=== PATIENT | male | born 1945 | race Caucasian/White ===

== ENCOUNTER → 2016-06-12 | Outpatient (CLI) | payer MEDICARE ==
--- NOTE | 2016-06-12 15:06 | US ---
EXAMINATION TYPE: US thyroid st tissue head/neck DATE OF EXAM: 06/12/2016 2:26 PM COMPARISON: Carotid ultrasound in PACS May 14, 2016. CT chest April 04, 2016. MRI cervical spi ne October 11, 2009 CLINICAL HISTORY: Nodule visualized on Carotid US GLAND SIZE: Right Lobe: 5.2 x 2.0 x 2.1 cm Overall Parenchyma: heterogenous Left Lobe: 4.8 x 1.6 x 1.3 cm Overall Parenchyma: heterogeneous Isthmus Thickness: 0.2 cm NODULES RIGHT: # of nodules measured on right: 2 1. 1.4 X 1.1 x 1.3 cm hypoechoic mixed nodule at the lower pole with well-defined margins; This nod ule is wider than tall and shows intranodular vascularity. Prior size: No prior 2. 1.4 X 0.8 x 1.0 cm Cystic nodule at the upper pole with well-defined margins; This nodule is wide r than tall and shows no intranodular vascularity. Prior size: No prior -Other sub-centimeter cystic nodules visualized LEFT: # of nodules measured on left: -Multiple subcentimeter cystic nodules- ISTHMUS: # of nodules measured in the isthmus: 0 TECHNOLOGIST IMPRESSION: Bilateral neck scanned, no abnormal lymphadenopathy noted. IMPRESSION: Thyroid gland is overall within normal limits in size with multiple nodules identified. The dominant 1.4 cm mixed nodule lower pole level right thyroid lobe has a regular thickened solid component, cons ider ultrasound-guided fine-needle aspiration of this nodule. SONOGRAPHIC PATTERNS, ESTIMATED MALIGNANCY RISK AND FNA GUIDANCE FOR THYROID NODULES Sonographic Pattern: High Suspicion Ultrasound Features: Solid Hypoechoic Nodule Or Solid Hypoechoic Component Of A Partially Cystic Nodule With One Or More O f The Following Features: Irregular Margins (Infiltrative, Microlobulated), Microcalcifications, Tall er Than Wide Shape, Rim Calcifications With Small Extrusive Soft Tissue Component, Estimated Risk Of Malignancy, %: >70-90 FNA Size Cutoff (Largest Dimension): Recommend FNA At > 1cm
== END | disposition home or self-care (01) ==
LOC: RADUSWWP 14:08
PROVIDERS: ATTEND Family Medicine
DX: E04.2 Nontoxic multinodular goiter (principal)
CPT/HCPCS: 76536

== ENCOUNTER → 2016-06-21 | Outpatient (CLI) | payer MEDICARE ==
--- NOTE | 2016-06-22 12:04 | ECHOF ---
Referral Reason:R91.1 solitary pulmonary nodule I65.22 lt carotid artery jenna MEASUREMENTS -------- HEIGHT: 182.9 cm WEIGHT: 104.3 kg BP: RVIDd: 2.9 cm (< 3.3) IVSd: 1.3 cm (0.6 - 1.1) LVIDd: 4.4 cm (3.9 - 5.3) LVPWd: 1.4 cm (0.6 - 1.1) IVSs: 1.4 cm LVIDs: 3.4 cm LVPWs: 1.6 cm LA Diam: 3.0 cm (2.7 - 3.8) LAESV Index (A-L): 17.51 ml/m Ao Diam: 2.8 cm (2.0 - 3.7) AV Cusp: 2.1 cm (1.5 - 2.6) LA Diam: 3.4 cm (2.7 - 3.8) MV EXCURSION: 16.594 mm (> 18.000) MV EF SLOPE: 71 mm/s (70 - 150) EPSS: 0.5 cm MV E Flynn: 0.66 m/s MV DecT: 256 ms MV A Flynn: 0.92 m/s MV E/A Ratio: 0.72 RAP: 5.00 mmHg RVSP: 14.41 mmHg FINDINGS -------- Sinus rhythm. This was a technically adequate study. There is mild concentric left ventricular hypertrophy. Overall left ventricular systolic function is low-normal with, an EF between 50 - 55 %. The right ventricle is normal in size. The right atrial size is normal. There is mild aortic valve sclerosis. There is no evidence of aortic regurgitation. Mild mitral annular calcification present. Mild mitral regurgitation is present. Mild tricuspid regurgitation present. There is no evidence of pulmonary hypertension. The right ventricular systolic pressure, as measured by Doppler, is 14.41mmHg. Trace/mild (physiologic) pulmonic regurgitation. The aortic root size is normal. Echo free space may represent effusion or a pericardial fat pad. CONCLUSIONS -------- 1. There is mild concentric left ventricular hypertrophy. 2. Overall left ventricular systolic function is low-normal with, an EF between 50 - 55 %. 3. There is mild aortic valve sclerosis. 4. Mild mitral annular calcification present. 5. Mild mitral regurgitation is present. 6. There is no evidence of pulmonary hypertension. 7. The right ventricular systolic pressure, as measured by Doppler, is 14.41mmHg. 8. Trace/mild (physiologic) pulmonic regurgitation. 9. Echo free space may represent effusion or a pericardial fat pad. GPS NAVIGATION INSTALLER: Evelyne Agee RDCS
== END | disposition home or self-care (01) ==
LOC: RADECHMAIN 13:02
PROVIDERS: ATTEND Family Medicine
DX: I51.7 Cardiomegaly (principal); I08.0 Rheumatic disorders of both mitral and aortic valves; I37.1 Nonrheumatic pulmonary valve insufficiency
CPT/HCPCS: 93306

== ENCOUNTER → 2016-07-13 | Outpatient (CLI) | payer MEDICARE ==
--- NOTE | 2016-07-13 07:57 | CT ---
EXAMINATION TYPE: CT chest wo con DATE OF EXAM: 07/13/2016 7:43 AM COMPARISON: Previous study dated 04/04/2016 HISTORY: 3 month f/u CT DLP: 499.8 mGycm Automated exposure control for dose reduction was used. FINDINGS: Lesion in the right lung apex has increased in size from 5.7 mm to 7.2 mm. There are scattered granul omas throughout the lungs. A lesion seen in the anterior aspect of the right middle lobe is less appa rent on today's examination and has decreased in size from 8.2 mm to 7.7 mm. A groundglass nodule at the junction of the fingers on the right has increased in size from 6.6 mm the 8.5 mm. A groundglass nodule seen in the superior segment of the right lower lobe has increased in size from 7.6 mm to 11.7 mm. No new nodules are identified. There is some shotty mediastinal adenopathy. No pathologically enlarged lymph nodes are seen. There a re calcified lymph nodes in the right hilum. There is no pleural or pericardial fluid. There is mild coronary artery calcification. There is evidence of old granulomatous disease in the liver and spleen. Visualized portions of the up per abdomen are otherwise normal. There is hypertrophic spondylosis within the spine. There is been a previous ACDF of the lower cervical spine. IMPRESSION: 1. ENLARGING PULMONARY NODULES. 2. 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 3. HYPERTROPHIC SPONDYLOSIS WITHIN THE SPINE. 4. POSTSURGICAL CHANGE.
== END | disposition home or self-care (01) ==
LOC: RADCTMAIN 07:23
PROVIDERS: ATTEND Family Medicine
DX: R91.8 Other nonspecific abnormal finding of lung field (principal); J44.9 Chronic obstructive pulmonary disease, unspecified; Z98.890 Other specified postprocedural states
CPT/HCPCS: 71250

== ENCOUNTER 2016-07-30 12:07 | Day surgery (SDC) | payer MEDICARE ==
[2016-07-30 13:17] VITALS: BP 151/87; PULSE 94; RESP 20; TEMP 97.6
--- NOTE | 2016-08-13 07:45 | US ---
EXAMINATION TYPE: US FNA thyroid DATE OF EXAM: 07/30/2016 1:56 PM COMPARISON: Prior ultrasound 12 June 2016 HISTORY: Thyroid nodule, E04.1 Maximal barrier technique was utilized. Ultrasound using sterile technique. The skin overlying the no dule was localized with ultrasound and the overlying skin prepped and draped. Lidocaine used for loca l anesthesia. 5 passes with a 25-gauge needle were made into the nodule under ultrasound guidance. As pirate specimen submitted to cytology. Following the procedure hemostasis achieved. No immediate comp lication IMPRESSION: Status post ultrasound-guided fine-needle aspiration of thyroid nodule, pathology pending .
== END 2016-07-30 14:15 | disposition home or self-care (01) ==
LOC: RADPROMAIN 12:07
PROVIDERS: ATTEND Family Medicine
DX: E04.1 Nontoxic single thyroid nodule (principal)
CPT/HCPCS: 10022; 36415; 76942; 88173; 88305

== ENCOUNTER → 2017-02-08 | Outpatient (CLI) | payer MEDICARE ==
--- NOTE | 2017-02-08 11:33 | CT ---
EXAMINATION TYPE: CT chest wo con DATE OF EXAM: 02/08/2017 COMPARISON: July 13, 2016 HISTORY: Multiple Lung Nodules CT DLP: 481.[address] of the chest was performed with lung and mediastinal window settings submitted. The la ck of contrast limits evaluation of the vascular, mediastinal and parenchymal structures including th e upper abdomen. LUNGS: Right apical groundglass nodular density is essentially unchanged at 7 mm. Additional nodular groundglass density superior segment right lower lobe measures 9.5 mm versus 9.6 mm previously. Stabl e calcified nodules within the right middle lobe. Pleural-based nodule right middle lobe anteriorly i s also unchanged at 7 mm. Right lower lobe nodule is unchanged at 8.5 mm. MEDIASTINUM/JOAO: Thoracic aorta is of normal caliber with limited evaluation given lack of contrast . The heart is not enlarged. No evidence for mediastinal mass. No lymph nodes greater than 1cm. C alcified hilar lymph nodes. UPPER ABDOMEN: Splenic granulomas identified. Hepatic granuloma also seen. OTHER: No significant other abnormality. IMPRESSION: 1. Findings likely on the basis of calcified and noncalcified granulomatous disease however stabilit y over a two-year timeframe should be documented radiographically.
== END | disposition home or self-care (01) ==
LOC: RADCTMAIN 10:53
PROVIDERS: ATTEND Internal Medicine Critical Care Medicine
DX: R91.8 Other nonspecific abnormal finding of lung field (principal); Z88.8 Allergy status to other drugs, medicaments and biological substances
CPT/HCPCS: 71250

== ENCOUNTER → 2018-04-09 | Outpatient (CLI) | payer MEDICARE ==
--- NOTE | 2018-04-09 08:35 | CTL ---
EXAMINATION TYPE: CT Low Dose Lung DATE OF EXAM ORDERED: 04/09/2018 HISTORY: Long-term tobacco use. Lung cancer screening CT DLP: 126.[address] CTDI: 3.6 mGy Automated exposure control for dose reduction was used. SCREENING VISIT: Second study COMPARISON: Low-dose lung screening CT April 04, 2016. Chest CTs February 08, 2017 and July 13, 2016. TECHNIQUE: Low dose computed tomography scan was performed through the chest at 1 mm thick sections a nd reconstructed images in the coronal plane at [address] DIAGNOSTIC QUALITY: Satisfactory FINDINGS: LUNG NODULES: Present, detailed below: 9 x 6 mm right apical scarlike opacity or ground glass nodule without solid component axial image 27 is slightly more prominent from prior's. Superior right lower lobe 9 x 8 mm groundglass nodule axial image 126 is slightly more prominent post erior to tiny thin-walled cyst or bleb. A 7 x 4 mm right midlung nodule at the fissure junction axial image 160 is stable. Somewhat elongated 6 x 4 mm nodule medial right middle lobe adjacent to focal pleural thickening axia l image 174 stable. Stable 7 x 5 mm subpleural nodule anterior right middle lobe axial image 194. Scattered subcentimeter calcified nodules are granulomas throughout the right lung are redemonstrated LUNGS: COPD: Severity: Mild Fibrosis: Severity: Mild peripheral reticulations remain present. Mild left basilar linear scarring i s again seen. Lymph nodes: Stable slightly prominent but calcified right hilar lymph nodes. No new greater than 1 c m adenopathy. Other findings: New focal area of groundglass opacity in the lingula near axial image 186. BILATERAL PLEURAL SPACE: Effusion: None Calcification: None Thickening: None Pneumothorax: None HEART: Heart Size: Normal Coronary calcification: Moderate Pericardial effusion: None OTHER FINDINGS: Upper abdomen: Visualized liver is hypodense relative to spleen consistent with diffuse fatty infiltr ation. Bony thorax: Anterior fusion plate lower cervical spine is redemonstrated on localizer image. Moderat e to severe multilevel spurring in thoracic spine is redemonstrated. Supraclavicular region: None Other: None IMPRESSION: Scattered nodules, scarlike opacities, and groundglass nodules redemonstrated. No new nod ules are evident. Majority nodules stable for one year. Right-sided groundglass nodules perhaps sligh tly more prominent from initial CT but remain under 20 mm in size. FOLLOW UP CT CHEST RECOMMENDATION: Annual low-dose lung screening CT CT LUNG RAD: Lung-Rad 2 Benign Appearance or Behavior
== END | disposition home or self-care (01) ==
LOC: RADCTMAIN 07:07
PROVIDERS: ATTEND Internal Medicine Critical Care Medicine
DX: Z12.2 Encounter for screening for malignant neoplasm of respiratory organs (principal); R91.8 Other nonspecific abnormal finding of lung field; Z87.891 Personal history of nicotine dependence

== ENCOUNTER → 2019-04-06 | Outpatient (CLI) | payer MEDICARE ==
--- NOTE | 2019-04-07 04:36 | CTL ---
EXAMINATION TYPE: CT Low Dose Lung DATE OF EXAM ORDERED: 04/06/2019 HISTORY: 73-year-old male Tobacco and nicotine dependency.. Lung cancer screening CT DLP: [address] CTDI: 2.6 mGy Automated exposure control for dose reduction was used. SCREENING VISIT: Annual follow-up COMPARISON: 04/09/2018 TECHNIQUE: Low dose computed tomography scan was performed through the chest at 1 mm thick sections a nd reconstructed images in the coronal and sagittal plane. Additional coronal MIP reconstruction perf ormed. CT DIAGNOSTIC QUALITY: Satisfactory FINDINGS: Heart normal size without pericardial effusion. Scattered coronary vessel calcifications are present. Aorta normal caliber with mild atherosclerotic arch calcifications and dimension arch vessel branchin g anatomy. Scattered nonenlarged mediastinal lymph nodes. No thoracic lymphadenopathy by CT size criteria. Calci fied right hilar and lower right paraesophageal lymph nodes compatible with prior granulomatous disea se. Lungs show scattered calcified granulomas. Mild diffuse bronchial wall thickening. Stable 7 mm right apical pulmonary nodule axial image 41 but with increasing adjacent groundglass lincoln suring 1 cm, axial image 44. Groundglass focus superior segment right lower lobe currently measures 1.3 cm (9 mm, previously) with a new 5 mm solid component, axial image 138 and 139. Stable 7 mm nodule right mid lung along the fissure likely intrafissural lymph node, stable. 7 mm subpleural pulmonary nodule anterior right middle lobe axial image 203, unchanged. Some chronic volume loss medial basilar right middle lobe. Strandy atelectasis inferior lingula Visualized upper abdomen shows no gross abnormality by low-dose CT technique. Bones: Bridging anterior endplate spondylosis mid and lower thoracic spine suggesting dish. IMPRESSION: 1. Lung RADS - 4A (probably suspicious, 5-15% chance of malignancy). 1.3 cm groundglass nodule superi or segment right lower lobe increased from 9 mm with a new 5 mm solid component. 3 month follow-up CT recommended. 2. The relatively stable 7 mm right apical pulmonary nodule should also be closely monitored given ne w 1 cm adjacent groundglass. 3. Bronchial wall thickening suggests bronchitis or asthma. Prior granulomatous disease. RECOMMENDATION: 1. Three-month follow-up low-dose CT chest. 2. Smoking cessation. FOLLOW UP CT CHEST RECOMMENDATION: [address] LUNG RAD: Lung-Rad 4A Probably Suspicious
== END | disposition home or self-care (01) ==
LOC: RADCTMAIN 15:46
PROVIDERS: ATTEND Internal Medicine Critical Care Medicine
DX: Z12.2 Encounter for screening for malignant neoplasm of respiratory organs (principal); R91.8 Other nonspecific abnormal finding of lung field; D71 Functional disorders of polymorphonuclear neutrophils; Z87.891 Personal history of nicotine dependence

== ENCOUNTER → 2019-10-21 | Outpatient (CLI) | payer MEDICARE | END | disposition home or self-care (01) | LOC: LABPAT 08:43 | PROVIDERS: ATTEND Urology | DX: Z01.818 Encounter for other preprocedural examination (principal); C61 Malignant neoplasm of prostate | CPT/HCPCS: 87635 ==

== ENCOUNTER 2019-10-23 06:21 | Day surgery (SDC) | payer MEDICARE ==
--- NOTE | 2019-10-12 09:22 | P.HPIHPCON ---
History of Present Illness H&P Date: 10/23/19 Chief Complaint: prostate cancer Mr Gross is 73 yo male with hx of flex 7 prostae cancer. We discussed with him the options including surgery and radiation therapy. We discussed the risk and benefits with him of each approach. I discussed with surgery the risk of urinary incontinence or erectile dysfunction, I also discussed with him risk of injury to nearby organs including bowels and rectum and blood vessels. I also discussed the risk from anesthesia with him. Which included blood clots, heart attack, stroker and even . He understood all the risk and agreed to proceed with a robotic-assisted radical prostatectomy and plevic lymph node dissection Consent for Procedure: I have explained the operation/procedure to the patient, including the risks, benefits, side effects, alternative therapies (including not receiving the pr oposed treatment or service), the likelihood of the patient achieving his/her goals, and potential recuperation problems for the procedure/sedation/analgesia, as well as any blood products, if indicated. I also explained to the patient the risks, benefits and side effects of the alternatives, as well as the risks related to not receiving the proposed procedure, care, treatment, or services. Past Medical History Past Medical History: Cancer, COPD, Hyperlipidemia, Hypertension, Skin Disorder, Thyroid Disorder Additional Past Medical History / Comment(s): skin cancer - head, "nodules on my lung..need to get that scheduled, just found out today" History of Any Multi-Drug Resistant Organisms: None Reported Additional Past Surgical History / Comment(s): Neck surgery - plate, rotator cuff bilateral, skin cancer removed Past Anesthesia/Blood Transfusion Reactions: No Reported Reaction Past Psychological History: Anxiety Smoking Status: Former smoker Past Alcohol Use History: Occasional Additional Past Alcohol Use History / Comment(s): quit May 0811/2015 Past Drug Use History: None Reported - Past Family History Mother Brother(s) Family Medical History: Cancer Additional Family Medical History / Comment(s): Lung cancer Medications and Allergies Home Medications Medication Instructions Recorded Confirmed Type Cholecalciferol [Vitamin D3] 2,000 unit PO DAILY 07/20/16 07/30/16 History Fenofibrate [Lofibra] 160 mg PO DAILY 07/20/16 07/30/16 History Fish Oil/Dha/Epa [Fish Oil 1,200 1 each PO Q6HR 07/20/16 07/30/16 History mg Fish Oil] Metoprolol Succinate [Toprol XL] 50 mg PO DAILY 07/20/16 07/30/16 History Multivitamin [Men's Multi-Vitamin] 1 each PO DAILY 07/20/16 07/30/16 History Sertraline [Zoloft] 50 mg PO DAILY 07/20/16 07/30/16 History Valsartan/Hydrochlorothiazide 1 tab PO DAILY 07/20/16 07/30/16 History [Diovan Hct 160-25 mg Tablet] Varenicline [Chantix] 1 mg PO BID 07/20/16 07/30/16 History Allergies Allergy/AdvReac Type Severity Reaction Status Date / Time No Known Allergies Allergy Verified 07/30/16 12:48
[2019-10-21 12:27] VITALS: BMI 33.2
[~2019-10-23 06:21] MED LIST: DEXAMETHASONE SOD PHOSPHATE 10 MG/ML 1 ML VIAL IV ONE; LIDOCAINE 1% (10MG/ML) FOR IV START INTRADERMA PRN; MIDAZOLAM 2 MG/2 ML VIAL IV PRN; ONDANSETRON 4 MG/2 ML VIAL IVP ONE
[2019-10-23 07:01] LABS: Glucose,Whole Blood 170 mg/dL (75-99)
[2019-10-23] MEDS: LACTATED RINGERS 1,000 ML IV SCH ×2 (07:03→14:53)
[2019-10-23 07:06] LABS: Basophils % (A) 0 %; Eosinophils # (A) 0.2 k/uL (0-0.7); Eosinophils % (A) 2 %; HCT 40.5 % (39.0-53.0); HGB 14.1 gm/dL (13.0-17.5); Lymphocytes # (A) 1.9 k/uL (1.0-4.8); Lymphocytes % (A) 26 %; MCH 32.5 pg (25.0-35.0); Mean Platelet Volume 7.2; Monocytes # (A) 0.3 k/uL (0-1.0); Monocytes % (A) 4 %; Neutrophils # (A) 4.8 k/uL (1.3-7.7); Neutrophils % (A) 66 %; Platelet Count 239 k/uL (150-450); RBC 4.35 m/uL (4.30-5.90); WBC 7.3 k/uL (3.8-10.6)
[2019-10-23 07:09] LABS: Potassium 4.6 mmol/L (3.5-5.1)
[2019-10-23 07:19] LABS: Prothrombin Time 10.3 sec (9.0-12.0)
[2019-10-23] MEDS ORDERED: MIDAZOLAM 2 MG/2 ML VIAL ONE (07:25)
[2019-10-23] MEDS ORDERED: SUCCINYLCHOLINE CHLORIDE 100 MG/5 ML SYR IV ONE (07:25)
[2019-10-23] MEDS ORDERED: PROPOFOL 10 MG/ML 20 ML VIAL IV ONE (07:25)
[2019-10-23] MEDS ORDERED: GLYCOPYRROLATE 0.2 MG/ML 2 ML VIAL ONE (07:25)
[2019-10-23] MEDS ORDERED: fentaNYL (PF) 50 MCG/ML 2 ML AMP ONE (07:25)
[2019-10-23] MEDS ORDERED: HYDROmorphone (PF) 1 MG/ML ONE (07:25)
[2019-10-23] MEDS ORDERED: ROCURONIUM BROMIDE 10 MG/ML 5 ML VIAL IV ONE (07:25)
[2019-10-23] MEDS ORDERED: NEOSTIGMINE 1 MG/ML 10 ML VIAL ONE (07:25)
[2019-10-23] MEDS ORDERED: LIDOCAINE 1% INJ 10MG/ML (20 ML MDV) ONE (07:25)
[2019-10-23] MEDS ORDERED: HEPARIN SODIUM,PORCINE 5,000 UNIT/ML 1 ML VIAL SQ ONE (07:33)
[2019-10-23] MEDS ORDERED: BUPIVACAINE (PF) 0.25% 30 ML VIAL SQ ONE (08:17)
[2019-10-23] MEDS ORDERED: LACTATED RINGERS 1,000 ML IV ONE ×2 (11:05→12:20)
[2019-10-23] MEDS ORDERED: HYDROmorphone 1 MG/ML 1 ML SYRINGE IVP PRN (13:02)
[2019-10-23] MEDS ORDERED: traMADol 50 MG TAB PO PRN (13:06)
[2019-10-23 13:07] LABS: Glucose,Whole Blood 232 mg/dL (75-99)
--- NOTE | 2019-10-23 13:14 | P.OP ---
Date of Procedure: 10/23/19 Preoperative Diagnosis: Prostate cancer Postoperative Diagnosis: Same Procedure(s) Performed: Robotic prostatectomy, pelvic lymph node dissection Implants: None Anesthesia: DEJA Surgeon: Jeyson Choi Tele Grout Sewer Line Repairer #1: Derian Amaya Estimated Blood Loss (ml): 300 Pathology: other (Prostate, bilateral seminal vesicle, bilateral pelvic lymph node) Condition: stable Disposition: PACU Operative Findings: Seminal vesicle, the left base of the prostate was stuck posteriorly Description of Procedure: After preoperative antibiotics were started, the patient was taken to the operating room. Anesthesia was induced and the patient was placed in a low lithitomy position, with adequate padding of the pressure points, shoulders, back, legs and arms. He was then prepped and draped in the standard fashion. A critical pause was performed using two patient identifiers. A 16F barnes catheter was placed to gravity drainage. A pneumo-peritoneum was created with placement of a Veress needle to 20 mm Hg without complication, and a 8 Fr trocar was placed above the umbillicus. Under direct vision a 8mm robotic ports was placed lateral to each rectus slightly below the camera port. The left iliac fossa 8mm port was placed. The right paraprofessional education assistant right iliac fossa 12mm port and right paramedian 5mm portwere placed. After the patient was placed in the trendelenberg position, the robot was then docked to the 8mm robotic ports and then each robotic arm and tower was checked in relation to the patient's legs and hands to avoid inadvertent compression. The peritoneal cavity was inspected. An inverted U-shaped incision began laterally to the left medial umbilical ligament and extended high across the midline to the right umbilical ligament. The limbs of the "U" extended to the level of the vasa on both sides. We next developed the preperitoneal space and the space of Retzius. Cautery was used to dissected the bladder away from the prostate. After the anterior bladder neck was incised and the bladder entered the the posterior bladder neck was exposed and the ureteral orifces identified. The posterior bladder neck was then incised and dissected away from the prostate. The vas and the seminal vesicles were now exposed and dissected to their insertions into the prostate and were not spared. Of note the the left seminal vesicle, and the left base of the prostate was stuck posteriorly . The rectum was cleared closely adhered to the left base. Given this finding, the posterior plane along the right side of the prostate was developed after the right side of the prostate was freed from posteriorly , using blunt dissection the left prostate base was freed from the rectum. After the base was released, the apical midportion of the prostate was easily for freed posteriorly. Each lateral pedicle was controlled with clips and cautery for hemostasis. Nerve preservation was performed standard nerve sparing was performed on the right and standard was performed on the left. The puboprostatic ligament was incised where it inserted into the apex of the prostate and a plane between urethra and dorsal venous complex developed to expose the anterior urethral surface. The anterior wall of the urethra was transected with the cut setting a few millimeters distal to the apex of the prostate. The dorsal vein was ligated using 3-0 V lock bilateral obturator and external iliac lymph node packets were carefully dissected after careful visualization of the hypogastric artery and obturator nerve. There was careful attention paid to hemostasis with judicious use of cautery. The urethrovesical anastomosis was performed . the posterior denovillers was reapproximated using 3-0 V lock. A 6 and 6 inch 3-0 V-Lock suture was used to anastomose the urethra and bladder, starting at the 6:00 posterior position. Mucosa was secured in every stitch, to ensure a mucosa to mucosa anastomosis. The stitch was regularly cinched and the anastomosis tightened. Care was taken to not violate the ureteral orifices. The Barnes catheter was advanced, the bladder filled, and the anastomosis was tested, as described above. Anastomsis was watertight at 150 mL The periumbilical fascia was closed with 1-0-PDS suture in running fashion. All ports were closed with a subcuticular 4-0 monocryl and Dermabond. Sponge, instrument, and needle counts were correct at the end of the case x2. All sp ecimens including prostate and lymph nodes were sent to pathology for diagnosis and will be available in a week. The patient tolerated the surgery well and without complication. He awoke without difficulty and was taken to the recovery room in stable condition
[2019-10-23] MEDS ORDERED: INSULIN ASPART (NovoLOG) 100 UNIT/ML VIAL SQ ONE (13:22)
[2019-10-23] MEDS: HYDROmorphone 0.5 MG/0.5 ML SYRINGE IVP PRN ×2 (13:34→13:40)
[2019-10-23 16:41] LABS: Glucose,Whole Blood 187 mg/dL (75-99)
[2019-10-23] MEDS: DEXTROSE 5%-0.45% NACL 1,000 ML IV SCH ×2 (17:34→22:24)
[2019-10-23] MEDS: HEPARIN SODIUM,PORCINE 5,000 UNIT/ML 1 ML VIAL SQ SCH (17:37)
[2019-10-23] MEDS: ACETAMINOPHEN TAB 325 MG TAB PO SCH ×2 (17:37→21:18)
[2019-10-23 20:16] LABS: Glucose,Whole Blood 183 mg/dL (75-99)
[2019-10-23 20:33] LABS: HCT 36.9 % (39.0-53.0); HGB 11.9 gm/dL (13.0-17.5); MCH 30.6 pg (25.0-35.0); MCHC 32.2 g/dL (31.0-37.0); Mean Platelet Volume 7.2; Platelet Count 294 k/uL (150-450); RBC 3.88 m/uL (4.30-5.90); RDW 15.1 % (11.5-15.5); WBC 16.3 k/uL (3.8-10.6)
[2019-10-23 20:39] LABS: Calcium 9.1 mg/dL (8.4-10.2); Potassium 5.2 mmol/L (3.5-5.1)
[2019-10-23] MEDS: COLCHICINE 0.6 MG EACH PO SCH (21:19)
[2019-10-24] MEDS: HEPARIN SODIUM,PORCINE 5,000 UNIT/ML 1 ML VIAL SQ SCH ×2 (00:40→10:42)
[2019-10-24] MEDS: ACETAMINOPHEN TAB 325 MG TAB PO SCH ×5 (00:40→14:14)
[2019-10-24] MEDS: DEXTROSE 5%-0.45% NACL 1,000 ML IV SCH (05:44)
[2019-10-24 07:05] LABS: Glucose,Whole Blood 142 mg/dL (75-99)
[2019-10-24] MEDS ORDERED: ALLOPURINOL 300 MG TAB PO SCH (09:00)
[2019-10-24] MEDS ORDERED: SERTRALINE 50 MG TAB PO SCH (09:00)
[2019-10-24] MEDS ORDERED: METOPROLOL SUCCINATE (ER) 50 MG TAB.ER.24H PO SCH (09:00)
[2019-10-24] MEDS: COLCHICINE 0.6 MG EACH PO SCH (10:43)
[2019-10-24 11:19] LABS: Glucose,Whole Blood 157 mg/dL (75-99)
[2019-10-24 12:13] VITALS: BP 125/66; PULSE 71; RESP 17; TEMP 98.1
--- NOTE | 2019-10-24 14:18 | P.DS ---
Providers Attending physician: Jeyson Choi MD Primary care physician: [facility] Course: Mr Perez is 73 yo male with hx of prostate cancer, he underwent robotic prostatectomy on 10/22. He had no complication during surgery, please see op note dated 10/22 for full surgery details. He was admitted to the hospital post operatively. He was discharged home on POD #1 with barnes catheter , at time of discharge he was tolerating diet, ambulating and pain well controlled. Plan - Discharge Summary Discharge Rx Participant: No New Discharge Prescriptions: New Cephalexin [Keflex] 500 mg PO Q12HR 3 Days #6 cap Methocarbamol [Robaxin] 750 mg PO QID PRN #20 tab PRN Reason: Pain No Action Sertraline [Zoloft] 50 mg PO DAILY Metoprolol Succinate [Toprol XL] 50 mg PO DAILY Fish Oil/Dha/Epa [Fish Oil 1,200 mg Fish Oil] 2 each PO BID Multivitamin [Men's Multi-Vitamin] 1 each PO DAILY Cholecalciferol [Vitamin D3] 2,000 unit PO BID Allopurinol [Zyloprim] 300 mg PO DAILY Olmesartan Medoxomil 40 mg PO DAILY Colchicine 0.6 mg PO BID Discharge Medication List Cholecalciferol [Vitamin D3] 2,000 unit PO BID 07/20/16 [History] Fish Oil/Dha/Epa [Fish Oil 1,200 mg Fish Oil] 2 each PO BID 07/20/16 [History] Metoprolol Succinate [Toprol XL] 50 mg PO DAILY 07/20/16 [History] Multivitamin [Men's Multi-Vitamin] 1 each PO DAILY 07/20/16 [History] Sertraline [Zoloft] 50 mg PO DAILY 07/20/16 [History] Allopurinol [Zyloprim] 300 mg PO DAILY 10/21/19 [History] Colchicine 0.6 mg PO BID 10/21/19 [History] Olmesartan Medoxomil 40 mg PO DAILY 10/21/19 [History] Cephalexin [Keflex] 500 mg PO Q12HR 3 Days #6 cap 10/24/19 [Rx] Methocarbamol [Robaxin] 750 mg PO QID PRN #20 tab 10/24/19 [Rx] Follow up Appointment(s)/Referral(s): Jeyson Choi MD [STAFF PHYSICIAN] - 10 Days Patient Instructions/Handouts: Cephalexin (By mouth), Methocarbamol (By mouth) Activity/Diet/Wound Care/Special Instructions: You may see some blood in the urine Follow up in 10 days no Heavy lifting or straining Start you keflex one day prior to your appointment diet as tolerated call on Saturday to schedule appointments Discharge Disposition: HOME SELF-CARE
== END 2019-10-24 15:33 | disposition home or self-care (01) ==
LOC: OR 06:21 → 5NMEDONC 12:41 → OR 10-24 15:33
PROVIDERS: ATTEND Urology
DX: C61 Malignant neoplasm of prostate (principal); J44.9 Chronic obstructive pulmonary disease, unspecified; E78.5 Hyperlipidemia, unspecified; I10 Essential (primary) hypertension; R91.8 Other nonspecific abnormal finding of lung field; E07.9 Disorder of thyroid, unspecified; Z85.828 Personal history of other malignant neoplasm of skin; Z98.890 Other specified postprocedural states; F41.9 Anxiety disorder, unspecified; Z87.891 Personal history of nicotine dependence; Z80.1 Family history of malignant neoplasm of trachea, bronchus and lung; Z79.899 Other long term (current) drug therapy
CPT/HCPCS: 86900; 86901; 80048; 85025; 85027; 85610; 86850; 55866; 38571; J1644 ×2; J1100; J0690; J2405; J1170

== ENCOUNTER → 2020-03-14 | Outpatient (CLI) | payer MEDICARE ==
--- NOTE | 2020-03-14 13:47 | CT ---
EXAMINATION TYPE: CT chest wo con DATE OF EXAM: 03/14/2020 COMPARISON: 07/13/2019 HISTORY: Follow up scan per patient CT DLP: 517.4 mGycm. Automated Exposure Control for Dose Reduction was Utilized. TECHNIQUE: CT scan of the thorax is performed without IV contrast. FINDINGS: LUNGS: Stable 7 x 8 mm irregular density right apex unchanged. No pneumothorax. No pleural effusion. No consolidative pneumonia. There are additional multiple calcified pulmonary nodules in the right lin ng compatible with granuloma.. MEDIASTINUM: Lack of IV contrast is noted to limit evaluation for mediastinal and especially hilar ad enopathy. There are no definitive greater than 1 cm hilar or mediastinal lymph nodes. No cardiomega ly or pericardial effusion is seen. Calcified lymph nodes in the hilum seen with coronary artery calc ification. OTHER: Splenic and hepatic granuloma noted. Hypertrophic and degenerative changes of the spine. Incid ental note made of duodenal diverticulum. Postsurgical change overlying the cervical spine. IMPRESSION: 1. Stable 8 mm somewhat irregular right apical pulmonary nodule correlate clinically. PET scan could BE obtained for further evaluation. 2. Correlate for chronic granulomatous disease.
== END | disposition home or self-care (01) ==
LOC: RADCTMAIN 13:08
PROVIDERS: ATTEND Internal Medicine Critical Care Medicine
DX: R91.1 Solitary pulmonary nodule (principal); Z88.6 Allergy status to analgesic agent
CPT/HCPCS: 71250

== ENCOUNTER → 2021-01-03 | Outpatient (CLI) | payer MEDICARE ==
--- NOTE | 2021-01-03 19:34 | MR ---
EXAMINATION TYPE: MR knee RT wo con DATE OF EXAM: 01/03/2021 COMPARISON: Outside radiographs 12/16/2020 HISTORY: 75-year-old male M2 5.561, Right knee pain TECHNIQUE: Multiplanar, multisequence imaging of the right knee is performed without IV contrast. FINDINGS: ACL, PCL, and MCL are intact. Some increased signal within the popliteus tendon could represent a mild sprain or contusion. The fem oral insertion of the LCL proper also shows slight increased signal. The remainder of the LCL complex is otherwise intact. Large oblique tear extending throughout the posterior horn and body of the medial meniscus. Mild supe rficial cartilage irregularity along the major central aspect of the medial compartment. Lateral meniscus is partially discoid. Overall preserved lateral compartment articular cartilage volu me. Mild superficial irregular cartilage loss along the trochlear groove and mild thinning of patellar ar ticular cartilage. Some focal soft tissue edema inferior and lateral to the patella within Hoffa's fat, sagittal image 2 6. Some additional edema within the suprapatellar fat pad medially extending into the adjacent medial quadriceps insertion. Sagittal image 17 and 18. Additional increased signal involving the proximal d eep patellar tendon fibers. Anterior soft tissue swelling. Physiologic joint effusion. Small 3.4 cm Matt cyst. Normal popliteal artery anatomy with mild generalized muscle atrophy. No suspicious bone marrow repla cement. Patchy red marrow is present and can be seen in the setting of anemia, obesity, smoking, lunchroom food service supervisor conrado disease. IMPRESSION: 1. Mild sprain at the femoral insertion of the LCL proper and additional sprain/contusion of the popl iteus tendon. 2. Large oblique tear involving the posterior horn and body of the medial meniscus. Very mild early d egenerative change along the mid central aspect of the medial compartment. 3. Mild patellofemoral compartmental osteoarthrosis. 4. Tendinosis at the medial insertion of the quadriceps tendon and mild proximal patellar tendinosis. 5. Some focal edema within Hoffa's fat inferolateral to the patella can be seen with fat pad impingem ent syndrome. Clinically correlate. 6. Anterior soft tissue swelling and small Matt's cyst.
== END | disposition home or self-care (01) ==
LOC: RADMRIMAIN 11:10
PROVIDERS: ATTEND Orthopaedic Surgery
DX: S80.01XA Contusion of right knee, initial encounter (principal); M17.11 Unilateral primary osteoarthritis, right knee; M23.321 Other meniscus derangements, posterior horn of medial meniscus, right knee; M71.21 Synovial cyst of popliteal space [Baker], right knee

== ENCOUNTER 2021-02-09 10:04 | Day surgery (SDC) | payer MEDICARE ==
--- NOTE | 2021-02-08 19:41 | HP ---
HISTORY AND PHYSICAL DATE OF SURGERY: 02/09/2021 Ricky Gross is a 75-year-old gentleman seen with progressive right knee pain. We discussed options. He elected to proceed with right knee arthroscopy. Consent was obtained. Clearance was provided by Dr. Chan. PAST MEDICAL HISTORY: Hypertension, hzy-kynchkb-nyntntepm diabetes, hyperlipidemia. PAST SURGICAL HISTORY: Bilateral shoulder surgery, prostatectomy. DAILY MEDICATIONS: Metformin, metoprolol, sertraline, colchicine. ALLERGIES: NONE. SOCIAL HISTORY: He denies current tobacco use. PHYSICAL EVALUATION OF THE RIGHT KNEE: Range of motion zero to 130. Mild effusion. Tenderness, medial joint line. Positive medial Fifi's. Ligaments stable. Hip rotation without pain. Distal neurovascular exam intact. RADIOGRAPHS: Right knee radiographs revealed mild to moderate osteoarthritis. Right knee MRI revealed medial meniscal tear. IMPRESSION: 1. Internal derangement of right knee with medial meniscal tear. 2. Hypertension. 3. Hyperlipidemia. 4. Gxa-vwhiabq-zlkapgvai diabetes. PLAN: Right knee arthroscopy with partial meniscectomy and debridement. MMODL / IJN: [id number] /
[~2021-02-09 10:04] MED LIST changes: -DEXAMETHASONE SOD PHOSPHATE 10 MG/ML 1 ML VIAL IV ONE; +DEXAMETHASONE SOD PHOSPHATE 4 MG/ML 1 ML VIAL IV ONE; +HYDROmorphone 0.5 MG/0.5 ML SYRINGE IVP PRN; +LACTATED RINGERS 1,000 ML IV SCH; -LIDOCAINE 1% (10MG/ML) FOR IV START INTRADERMA PRN; -MIDAZOLAM 2 MG/2 ML VIAL IV PRN
[2021-02-09] MEDS ORDERED: LIDOCAINE 1% (10MG/ML) FOR IV START INTRADERMA ONE (10:19)
[2021-02-09 10:38] VITALS: RESP 16; TEMP 96.8
[2021-02-09 10:40] LABS: Glucose,Whole Blood 128 mg/dL (75-99)
[2021-02-09] MEDS ORDERED: fentaNYL (PF) 50 MCG/ML 2 ML AMP ONE (11:29)
[2021-02-09] MEDS ORDERED: LIDOCAINE 1% INJ 10MG/ML (20 ML MDV) ONE (11:29)
[2021-02-09] MEDS ORDERED: MIDAZOLAM 2 MG/2 ML VIAL ONE (11:29)
[2021-02-09] MEDS ORDERED: SUCCINYLCHOLINE CHLORIDE 100 MG/5 ML SYR IV ONE (11:29)
[2021-02-09] MEDS ORDERED: PROPOFOL 10 MG/ML 20 ML VIAL IV ONE (11:29)
[2021-02-09] MEDS ORDERED: BUPIVACAINE (PF) 0.25% 30 ML VIAL SQ ONE (12:07)
--- NOTE | 2021-02-09 12:25 | P.OP ---
Date of Procedure: 02/09/21 Preoperative Diagnosis: Internal derangement right knee Postoperative Diagnosis: 1. Tear medial meniscus right knee 2. Grade 2 chondromalacia medial femoral condyle right knee 3. Reactive synovitis medial, lateral and suprapatellar compartments right knee Procedure(s) Performed: 1. Arthroscopic partial medial meniscectomy right knee 2. Arthroscopic chondroplasty medial femoral condyle right knee 3. Arthroscopic partial synovectomy medial, lateral and suprapatellar compartments right knee Anesthesia: ERIKAA, local Surgeon: Malick Dawkins Estimated Blood Loss (ml): 7 Pathology: none sent Condition: stable Disposition: PACU Indications for Procedure: 75-year-old patient seen with progressive right knee pain. After treatment options were discussed, he elected to proceed with arthroscopy. Operative Findings: See description of procedure Description of Procedure: Patient was taken to the operative suite. Patient underwent a general anesthetic by the department of anesthesia. Patient was given preoperative a ntibiotics. The right lower extremity was placed in a well-padded arthroscopic leg sigala. The right leg was prepped and draped in the normal sterile orthopedic fashion. A lateral parapatellar and suprapatellar incision was made. Trochars were inserted. Arthroscopy was initiated. Suprapatellar pouch revealed diffuse thick reactive synovitis. The patellofemoral joint appeared to articulate congruently. There was grade 1 chondromalacia with no tears. The scope was guided into the medial gutter. No loose bodies or plica were identified. The scope was then guided into the medial compartment. A medial parapatellar incision was made. Trocar inserted followed by probe. There was a complex tear posterior horn medial meniscus. There were grade 2 chondromalacia changes of the medial femoral condyle with some diffuse osteochondral tears present. There was thick reactive synovitis anteriorly. I performed a partial medial meniscectomy getting down to stable meniscal tissue. I performed a chondroplasty of the medial femoral condyle getting down to stable osteochondral tissue. I performed a partial synovectomy decompressing the thick reactive synovitis anteriorly. The shaver was removed. The residual meniscus was stable. The residual osteochondral surface was stable. There was good decompression of the synovitis. Scope and probe were then guided into the intercondylar notch. Cruciates were identified, probed and found to be stable. The scope and probe were then guided into lateral compartment. Lateral meniscus was probed and found to be stable. There was no significant chondromalacia. There was some thick reactive synovitis anteriorly. I introduced a motorized shaver and performed a partial synovectomy. The shaver was removed. There was good decompression of the synovitis. The scope was in guided back into the suprapatellar compartment. I introduced a motorized shaver into the superpatellar compartment. I debrided some piecemeal fragments of meniscus I encountered. I performed a partial synovectomy. The shaver was removed. There was good decompression of synovitis. Instruments were now removed from the joint. The joint was infiltrated with .25% Marcaine. Steri-Strips were applied to the portal sites. Sterile dressings were applied. The patient was placed into a BOLA hose. No tourniquet was utilized. The patient was awakened, tra nsferred to a bed and taken to recovery stable satisfactory condition.
[2021-02-09 12:45] LABS: Glucose,Whole Blood 128 mg/dL (75-99)
[2021-02-09 13:26] VITALS: BP 112/70; PULSE 59
== END 2021-02-09 13:56 | disposition home or self-care (01) ==
LOC: OR 10:04
PROVIDERS: ATTEND Orthopaedic Surgery
DX: S83.241A Other tear of medial meniscus, current injury, right knee, initial encounter (principal); M65.9 Synovitis and tenosynovitis, unspecified; I10 Essential (primary) hypertension; J44.9 Chronic obstructive pulmonary disease, unspecified; E11.9 Type 2 diabetes mellitus without complications; E78.5 Hyperlipidemia, unspecified; F41.9 Anxiety disorder, unspecified; B39.9 Histoplasmosis, unspecified; M94.261 Chondromalacia, right knee; Z85.46 Personal history of malignant neoplasm of prostate; Z79.899 Other long term (current) drug therapy; Z88.5 Allergy status to narcotic agent
CPT/HCPCS: 29876; 29881; J2250; J1100; J0690; J2405; J2001; J3010; J0330; J2704

== ENCOUNTER → 2022-08-31 | Outpatient (CLI) | payer MEDICARE ==
--- NOTE | 2022-09-03 08:30 | PE ---
EXAMINATION TYPE: PET CT fusion skull to thigh DATE OF EXAM: 08/31/2022 COMPARISON: Low-dose lung screening CT August 08, 2022 HISTORY: Solitary pulmonary nodule, abnormal CT TECHNIQUE: Following the intravenous administration of 11.44 mCi of F-18 FDG, whole body images are performed from the skull base to the midthigh. Images are reviewed on the computer in the coronal, a xial, and sagittal planes. Reconstructed rotating images are created on independent workstation and reviewed on the computer. A localization and attenuation correction CT is performed in conjunction with the PET scan. Blood glucose level equals 124. SCAN: Initial Scan FINDINGS: SKULL BASE AND NECK: No areas of suspicious abnormal hypermetabolic uptake. Mild uptake involving th e base of tongue and at the level of the vocal cords is presumed physiologic. CHEST, MEDIASTINUM, AND HILAR REGION: Persistent 1.7 x 1.1 cm spiculated nodule or scar in the right lung apex axial image 71 without abnormal hypermetabolic uptake on PET. Persistent 2.0 cm Central right lung pulmonary nodule or possible right hilar lymph node axial image 96 has mild hypermetabolic uptake, max SUV is 3.65. No additional areas of abnormal hypermetabolic uptake. There is small right calcified nodule or benign granuloma and calcified right infrahilar lymph nodes consistent with old granulomatous disease redemonstrated. ABDOMEN AND PELVIS: Nonspecific diffuse bowel primary colonic uptake. No suspicious abnormal hypermet abolic uptake. No hypermetabolic adrenal masses. OSSEOUS STRUCTURES: No areas of abnormal hypermetabolic uptake. OTHER CT: Mild calcified plaque left carotid bulb. Liver is diffusely low dense consistent with fatty infiltrative hepatocellular disease. Prominent diverticula in the left and sigmoid colon. IMPRESSION: Chronic scarring right lung apex. Nonspecific central right lung nodules or less likely l ymph node is mildly hypermetabolic. Neoplasm at this level cannot be entirely excluded. Differential includes bronchoscopy evaluation and/or short-term CT/PET CT follow-up in 3-6 months time to reassess .
== END | disposition home or self-care (01) ==
LOC: RADPETMAIN 16:18
PROVIDERS: ATTEND Internal Medicine Critical Care Medicine
DX: J98.4 Other disorders of lung (principal); R91.8 Other nonspecific abnormal finding of lung field
CPT/HCPCS: 78815; A9552

== ENCOUNTER → 2022-09-12 | Outpatient (CLI) | payer MEDICARE ==
--- NOTE | 2022-09-12 16:22 | MR ---
EXAMINATION TYPE: MR knee RT wo con DATE OF EXAM: 09/12/2022 COMPARISON: January 03, 2021 HISTORY: Right knee pain x 2 months, no trauma. TECHNIQUE: Multiplanar, multisequence images of the knee is performed without IV contrast. FINDINGS: MEDIAL MENISCUS: Oblique tear posterior horn medial meniscus. Anterior horn is intact. LATERAL MENISCUS: Anterior and posterior horns are intact without tear. CRUCIATE LIGAMENTS: The anterior and posterior cruciate ligaments are intact and unremarkable. COLLATERAL LIGAMENTS: The medial collateral ligament and lateral collateral ligament complex are inta ct and unremarkable. EXTENSOR MECHANISM: Visualized quadriceps and patellar tendons are intact. EFFUSION: No significant suprapatellar joint effusion. POPLITEAL CYST: Popliteal cyst measures 2.2 cm. TRICOMPARTMENT SPACES: Moderate narrowing medial tibiofemoral joint space. CARTILAGE: Intact BONE MARROW SIGNAL: No focal abnormal marrow signal is appreciated. OTHER: No additional significant abnormality is appreciated. IMPRESSION: 1. Oblique tear posterior horn medial meniscus. 2. Popliteal cyst. 3. Degenerative joint space narrowing.
== END | disposition home or self-care (01) ==
LOC: RADMRIMAIN 08:05
PROVIDERS: ATTEND Orthopaedic Surgery
DX: M23.321 Other meniscus derangements, posterior horn of medial meniscus, right knee (principal); M71.21 Synovial cyst of popliteal space [Baker], right knee; M17.11 Unilateral primary osteoarthritis, right knee; M25.861 Other specified joint disorders, right knee

== ENCOUNTER → 2022-10-23 | Outpatient (CLI) | payer MEDICARE | END | disposition home or self-care (01) | LOC: LABWHC1 11:19 | PROVIDERS: ATTEND Family Medicine | DX: Z53.9 Procedure and treatment not carried out, unspecified reason (principal) ==

== ENCOUNTER → 2022-10-30 | Outpatient (CLI) | payer MEDICARE ==
[2022-10-30 08:25] LABS: Basophils % (A) 1 %; Eosinophils # (A) 0.2 k/uL (0-0.7); Eosinophils % (A) 3 %; HCT 40.2 % (39.0-53.0); HGB 13.5 gm/dL (13.0-17.5); Lymphocytes # (A) 1.3 k/uL (1.0-4.8); Lymphocytes % (A) 21 %; MCH 32.8 pg (25.0-35.0); MCHC 33.6 g/dL (31.0-37.0); MCV 97.5 fL (80.0-100.0); Macrocytosis Slight; Mean Platelet Volume 6.9; Monocytes # (A) 0.2 k/uL (0-1.0); Monocytes % (A) 4 %; Neutrophils # (A) 4.4 k/uL (1.3-7.7); Neutrophils % (A) 71 %; Platelet Count 216 k/uL (150-450); RBC 4.12 m/uL (4.30-5.90); RDW 15.8 % (11.5-15.5); WBC 6.2 k/uL (3.8-10.6)
[2022-10-30 08:36] LABS: ALT 28 U/L (4-49); AST 28 U/L (17-59); African American GFR (CKD) 63 (>60 ml/min/1.73 sqM); Albumin 4.2 g/dL (3.5-5.0); Albumin/Globulin Ratio 1.6; Alkaline Phosphatase 75 U/L (38-126); Anion Gap 11 mmol/L; Blood Urea Nitrogen 22 mg/dL (9-20); Calcium 9.1 mg/dL (8.4-10.2); Carbon Dioxide 24 mmol/L (22-30); Chloride 104 mmol/L (98-107); Globulin 2.6 g/dL; Glucose 191 mg/dL (74-99); Non-African American GFR(CKD) 55 (>60 ml/min/1.73 sqM); Partial Thromboplastin Time 25.3 sec (22.0-30.0); Potassium 4.8 mmol/L (3.5-5.1); Prothrombin Time 10.3 sec (9.0-12.0); Sodium 139 mmol/L (137-145); Total Bilirubin 0.7 mg/dL (0.2-1.3); Total Protein 6.8 g/dL (6.3-8.2)
== END | disposition home or self-care (01) ==
LOC: LABWHC1 07:25
PROVIDERS: ATTEND Family Medicine
DX: Z01.812 Encounter for preprocedural laboratory examination (principal)
CPT/HCPCS: 36415; 80053; 85025; 85610; 85730

== ENCOUNTER 2022-10-31 09:49 | Day surgery (SDC) | payer MEDICARE ==
[2022-10-25 16:09] VITALS: BMI 31.6
--- NOTE | 2022-10-30 23:17 | HP ---
HISTORY AND PHYSICAL DATE OF SCHEDULED SURGERY: 10/31/2022. HISTORY OF PRESENT ILLNESS: Ricky Gross is a 76-year-old gentleman seen with progressive right knee pain. We discussed options for treatment. He elected to proceed with right knee arthroscopy. Consent regarding procedure was obtained. Medical clearance was provided by Dr. Chan. PAST MEDICAL HISTORY: Hypertension, sxc-zpboqdl-uetbfkayp diabetes. PAST SURGICAL HISTORY: Prostatectomy, shoulder arthroscopy. DAILY MEDICATIONS: 1. Metformin. 2. Metoprolol. 3. Olmesartan. 4. Advil. ALLERGIES: None. SOCIAL HISTORY: He denies current tobacco use. PHYSICAL EVALUATION OF THE RIGHT KNEE: His range of motion is 0-125 degrees, mild effusion. Tenderness to medial joint line. Positive medial Fifi's. Ligaments are stable. Hip rotation is without pain. His distal neurovascular exam is intact. RADIOGRAPHS: Radiographs of the right knee revealed moderate osteoarthritic changes. MRI right knee revealed a medial meniscal tear and osteoarthritic changes. IMPRESSION: 1. Internal derangement right knee with medial meniscal tear. 2. Hypertension. 3. Hyperlipidemia. 4. Eeo-nysdzju-acczupoey diabetes. PLAN: Right knee arthroscopy with partial medial meniscectomy and debridement. MMODL / IJN: [id number] /
[~2022-10-31 09:49] MED LIST changes: -HYDROmorphone 0.5 MG/0.5 ML SYRINGE IVP PRN; +LIDOCAINE 1% (10MG/ML) FOR IV START INTRADERMA PRN; +droPERidol 5 MG/2 ML VIAL IVP ONE; +fentaNYL (PF) 50 MCG/ML 2 ML AMP IV PRN
[2022-10-31 10:25] LABS: Glucose,Whole Blood 119 mg/dL (70-110)
[2022-10-31] MEDS ORDERED: ePHEDrine 50 MG/ML 1 ML VIAL ONE (10:44)
[2022-10-31] MEDS ORDERED: PHENYLEPHRINE-0.9% NACL SYG 1,000 MCG/10 ML SYRINGE ONE (10:44)
[2022-10-31] MEDS ORDERED: fentaNYL (PF) 50 MCG/ML 2 ML AMP ONE (10:44)
[2022-10-31] MEDS ORDERED: PROPOFOL 10 MG/ML 20 ML VIAL IV ONE (10:44)
[2022-10-31] MEDS ORDERED: BUPIVACAINE (PF) 0.25% 30 ML VIAL SQ ONE (10:45)
--- NOTE | 2022-10-31 11:34 | P.OP ---
Date of Procedure: 10/31/22 Preoperative Diagnosis: Internal derangement right knee Postoperative Diagnosis: 1. Tear medial meniscus right knee 2. Grade 4 chondromalacia medial femoral condyle right knee 3. Reactive synovitis medial, lateral and suprapatellar compartments right knee Procedure(s) Performed: 1. Arthroscopic partial medial meniscectomy right knee 2. Arthroscopic microfracture medial femoral condyle right knee 3. Arthroscopic partial synovectomy medial, lateral and suprapatellar compartments right knee Anesthesia: ERIKAA, local Surgeon: Malick Dawkins Estimated Blood Loss (ml): 7 Pathology: none sent Condition: stable Disposition: PACU Indications for Procedure: 76-year-old gentleman seen with progressive right knee pain. After having treatment options discussed, he elected to proceed with arthroscopy. Operative Findings: See description of procedure Description of Procedure: Patient was taken to the operative suite. Patient underwent a general anesthetic by the department of anesthesia. Patient was given preoperative antibiotics. The right lower extremity was placed in a well-padded arthroscopic leg sigala. The right leg was prepped and draped in the normal sterile orthopedic fashion. A lateral parapatellar and suprapatellar incision was made. Trochars were inserted. Arthroscopy was initiated. Suprapatellar pouch revealed diffuse thick reactive synovitis. The patellofemoral joint appeared articulate congruently. There was grade 1 chondromalacia of the patella without sutures and osteochondral tears. The scope was guided into the medial gutter. No loose bodies or plica were identified. The scope was then guided into the medial compartment. A medial parapatellar incision was made. Trocar inserted followed by probe. There was a tear involving the posterior horn of the medial meniscus. There appeared be grade 2/3 chondromalacia changes along the anterior aspect medial femoral condyle with a large osteochondral flap tear present. There was some thick reactive synovitis anteriorly. I performed a partial medial meniscectomy getting down to stable meniscal tissue. I performed a chondroplasty of the medial femoral condyle getting down to stable osteochondral tissue. I performed a partial synovectomy decompressing the reactive synovitis anteriorly. I did note an area of grade 4 chondromalacia/exposed bone along the distal aspect of the femoral condyle. I introduced a microfracture awl. I performed a microfracture to the area penetrating the bone with resultant bleeding at the microfracture site. The residual meniscus was stable. The residual osteochondral surface along the femoral condyle. Stable. There was good decompression of the synovitis. Scope and probe were then guided into the intercondylar notch. Cruciates were identified, probed and found to be stable. The scope and probe were then guided into lateral compartment. Vital meniscus was probed and was found to be stable. There were some grade 1 chondromalacia changes of the lateral tibial plateau with no tears. There was no significant chondromalacia involving the lateral femoral condyle. There was some thick reactive synovitis anteriorly. I introduced a motorized shaver and performed a partial synovectomy. The shaver was now removed. There was good decompression of the synovitis. I took one more look around the entire knee, no residual debris. The scope was in guided back into the suprapatellar compartment. [Suprapatellar compartment documentation] Instruments were now removed from the joint. The joint was infiltrated with .25% Marcaine. Steri-Strips were applied to the portal sites. Sterile dressings were applied. The patient was placed into a BOLA hose. No tourniquet was utilized. The patient was awakened, transferred to a bed and taken to recovery stable satisfactory condition.
[2022-10-31 11:40] VITALS: TEMP 97.7
[2022-10-31 13:28] VITALS: BP 110/75; PULSE 70; RESP 16
== END 2022-10-31 13:29 | disposition home or self-care (01) ==
LOC: OR 09:49
PROVIDERS: ATTEND Orthopaedic Surgery
DX: S83.241A Other tear of medial meniscus, current injury, right knee, initial encounter (principal); M65.861 Other synovitis and tenosynovitis, right lower leg; M94.261 Chondromalacia, right knee; M17.11 Unilateral primary osteoarthritis, right knee; I10 Essential (primary) hypertension; E11.9 Type 2 diabetes mellitus without complications; E78.5 Hyperlipidemia, unspecified; J44.9 Chronic obstructive pulmonary disease, unspecified; Z98.890 Other specified postprocedural states; Z79.84 Long term (current) use of oral hypoglycemic drugs; Z79.899 Other long term (current) drug therapy; Z88.5 Allergy status to narcotic agent; X58.XXXA Exposure to other specified factors, initial encounter
CPT/HCPCS: 29879; 29881; 29876; J1100; J0690; J2405; J3010; J2370; J2704

== ENCOUNTER → 2023-02-15 | Outpatient (CLI) | payer MEDICARE ==
[2023-02-15 10:49] LABS: African American GFR (CKD) 60 (>60 ml/min/1.73 sqM); Blood Urea Nitrogen 26 mg/dL (9-20); Non-African American GFR(CKD) 52 (>60 ml/min/1.73 sqM)
--- NOTE | 2023-02-15 13:45 | CT ---
EXAMINATION TYPE: CT chest w con DATE OF EXAM: 02/15/2023 COMPARISON: 03/14/2020 and 08/31/2022 HISTORY: 77-year-old male R911 Solitary pulmonary nodule TECHNIQUE: Contiguous axial scanning of the chest after the administration of 80 mL of Isovue 300. C oronal/sagittal reconstructions performed. CT DLP: 455.70mGycm. Automatic exposure control utilized for a dose reduction. FINDINGS: Heart normal size without pericardial effusion. LAD and RCA coronary artery calcifications are presen t. Aorta normal caliber with mild atherosclerotic arch calcifications. Conventional arch vessel branchin g anatomy. There is a now a right hilar mass measuring 5.7 x 3.7 cm. On the PET CT measured as 2.0 cm. Irregular opacity at the lateral right apex measures 1.9 cm versus 8 mm, previously. Some subpleural reticular change, possible atelectasis or mild fibrosis posterior lung bases. Calcifi ed granulomas right middle lobe measuring up to 7 mm. Otherwise, no consolidation or pleural effusion. A couple calcified granulomas in the spleen compatible with prior granulomatous disease. 1.4 cm corti subhash cyst medial left kidney. There is dish throughout the mid to lower thoracic spine into the upper lumbar spine. ACF hardware. IMPRESSION: 1. Interval enlargement of the right hilar nodule now a 5.7 cm mass. Appropriate oncologic management advised. 2. Evidence of prior granulomatous disease. 3. 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
== END | disposition home or self-care (01) ==
LOC: RADCTMAIN 08:56
PROVIDERS: ATTEND Internal Medicine Critical Care Medicine
DX: R91.8 Other nonspecific abnormal finding of lung field (principal); M48.14 Ankylosing hyperostosis [Forestier], thoracic region
CPT/HCPCS: 82565; 84520; 71260; 36415; Q9967

== ENCOUNTER 2023-02-28 07:01 | Day surgery (SDC) | payer MEDICARE ==
[2023-02-20 14:01] VITALS: BMI 30.5
[~2023-02-28 07:01] MED LIST changes: -DEXAMETHASONE SOD PHOSPHATE 4 MG/ML 1 ML VIAL IV ONE; -ONDANSETRON 4 MG/2 ML VIAL IVP ONE; +ONDANSETRON 4 MG/2 ML VIAL IVP PRN; -droPERidol 5 MG/2 ML VIAL IVP ONE
[2023-02-28 07:53] VITALS: RESP 16; TEMP 97
--- NOTE | 2023-02-28 07:55 | CT ---
EXAMINATION TYPE: CT chest wo con DATE OF EXAM: 02/28/2023 COMPARISON: 02/15/2023 HISTORY: 77-year-old male R91.1, Solitary pulmonary nodule. TECHNIQUE: Contiguous axial scanning of the chest without contrast. Thin cut slices are generated. Co kulwant/sagittal reconstructions performed. CT DLP: 642.1mGycm. Automatic exposure control utilized for a dose reduction. FINDINGS: Heart normal size with trace anterior pericardial fluid measuring 4 mm thick. Three-vessel coronary a rtery calcifications are present. Mild atherosclerotic arch calcifications. Conventional arch vessel branching anatomy. Small calcified granulomas right hilum compatible with prior granulomatous disease. Redemonstrated 3.9 cm posterior right hilar mass mostly centered within the superior segment right lo wer lobe but also just extending anterior to the major fissure as well and prominently abutting the p osterior wall of the bronchus intermedius and encasing the superior segment right lower lobe bronchus . A few additional scattered calcified granulomas are noted. Nonspecific subpleural pulmonary nodule measuring 8 mm anterior right middle lobe. Irregular patch of opacity measuring 1.8 cm at the lateral right apex. Background mild emphysematous change. Suspect mild interstitial fibrosis in the lower lungs. Scattered nonenlarged mediastinal lymph nodes. A few scattered calcified granulomas within the spleen and liver. Bones: [facility] throughout the mid and lower thoracic spine. Disc osteophyte complex at T12-L1 may contri bute to moderate spinal canal stenosis. IMPRESSION: 1. COPD with mild emphysema and evidence of prior granulomas disease. 2. Unchanged 3.9 cm posterior right hilar mass encasing the superior segment right lower lobe and mos tly centered within the superior segment right lower lobe though just extending anteriorly across the major fissure. 3. Also redemonstrated 8 mm subpleural pulmonary nodule anterior right middle lobe and irregular 1.8 cm opacity in the lateral right apex.
[2023-02-28] MEDS ORDERED: DEXAMETHASONE SOD PHOSPHATE 4 MG/ML 1 ML VIAL IVP ONE (07:58)
[2023-02-28] MEDS ORDERED: ONDANSETRON 4 MG/2 ML VIAL IVP ONE (07:58)
[2023-02-28 08:00] LABS: Glucose,Whole Blood 117 mg/dL (70-110)
[2023-02-28] MEDS ORDERED: ePHEDrine 50 MG/ML 1 ML VIAL ONE (08:09)
[2023-02-28] MEDS ORDERED: NEOSTIGMINE 1 MG/ML 10 ML VIAL ONE (08:09)
[2023-02-28] MEDS ORDERED: LIDOCAINE 4% LTA KIT (4 ML) TOPICAL ONE (08:09)
[2023-02-28] MEDS ORDERED: MIDAZOLAM 2 MG/2 ML VIAL ONE (08:09)
[2023-02-28] MEDS ORDERED: GLYCOPYRROLATE 0.2 MG/ML 2 ML VIAL ONE (08:09)
[2023-02-28] MEDS ORDERED: ONDANSETRON 4 MG/2 ML VIAL ONE (08:09)
[2023-02-28] MEDS ORDERED: LIDOCAINE 2% INJ 20 MG/ML (2 ML VIAL) ONE (08:09)
[2023-02-28] MEDS ORDERED: PROPOFOL 10 MG/ML 20 ML VIAL IV ONE (08:09)
[2023-02-28] MEDS ORDERED: SUCCINYLCHOLINE CHLORIDE 200 MG/10 ML VIAL IV ONE (08:09)
[2023-02-28] MEDS ORDERED: fentaNYL (PF) 50 MCG/ML 2 ML AMP ONE (08:09)
[2023-02-28] MEDS ORDERED: PHENYLEPHRINE-0.9% NACL SYG 1,000 MCG/10 ML SYRINGE ONE (08:09)
[2023-02-28] MEDS ORDERED: ROCURONIUM 10 MG/ML (5 ML VIAL) IV ONE (08:09)
[2023-02-28] MEDS ORDERED: LACTATED RINGERS 1,000 ML IV ONE ×3 (08:14→09:25)
--- NOTE | 2023-02-28 09:22 | P.PCN ---
Date of Procedure: 02/28/23 Description of Procedure: Preoperative Diagnosis: Right upper lobe pulmonary nodule, groundglass with a small solid component Right upper lobe/right lower lobe mass Postoperative Diagnosis: Right upper lobe pulmonary nodule, groundglass with a small solid component Right upper lobe/right lower lobe mass Procedure(s) Performed: Flexible bronchoscopy Robotic-assisted bronchoscopy and addition to radial ultrasound evaluation of the pulmonary pulmonary nodule Robotic-assisted transbronchial needle aspirate, transbronchial biopsies, transbronchial brushing of the right upper lobe pulmonary nodule in addition to a bronchioloalveolar lavage EBUS TBNA of a right lower lobe/right upper lobe mass Anesthesia: ERIKAA Surgeon: Jamal Francisco Estimated Blood Loss (ml): 0 Pathology: other Condition: stable Disposition: same day Operative Findings: A physical exam was performed. Informed consent was obtained from the patient after explaining all the risks (pneumothorax, life threatening bleeding, infection and adverse effects due to medications), benefits and alternatives to the procedure which the patient appeared to understand and so stated. The patient was connected to the monitoring devices. General anesthesia was induced and the patient was intubated by anesthesia. A final timeout was performed and the procedure confirmed by the attending staff bronchoscopist. The bronchoscope was inserted and the airway examined. The flexible bronchoscope was removed and the robotic bronchoscope was inserted. Registration was completed. I next guided the robotic bronchoscope using the navigation system into the right upper lobe apical segment. Once in proper position, the bronchoscope was frozen. The radial EBUS probe was placed through the bronchoscope and confirmed abnormal u/s images vs normal lung. A needle was placed through the working channel and under fluoroscopic guidance, we sampled the area thought to have the mass twice. We then used a cloud biopsy pattern with ultrasound confirmation for 2 additional passes with the needle. U/S evaluation was then used to reconfirm location. Forceps were next introduced through working channel and extended the appropriate distance and 3 transbronchial biopsies were performed using fluoroscopic guidance. The u/s probe was then reinserted to confirm location. When confirmed this process was repeated for a total of 6 transbronchial biopsies. After reassessment with EBUS probe, a brush was placed through the extendable working channel for 1 pass with fluoroscopic guidance. U/S evaluation was then used to confirm location. 20ml of saline was then instilled into the area of the lesion. The robotic bronchoscope was removed and the airway inspected with a flexible bronchoscope and 10 ml of effluent from the BAL was collected. Following that, the endobronchial ultrasound was inserted evaluation of the central right upper lobe/right lower lobe mass. The endobronchial ultrasound was directed to the bronchus intermedius. Examining the posterior wall of the bronchus intermedius revealed a solid mass measuring approximately 3.5 cm in size. Under direct visualization, transbronchial needle aspirate of the mass was done using a 22-gauge vizishot . Adequacy of the samples was confirmed by pathology at the bedside. A total of 5 passes were obtained. No endobronchial bleeding was encountered. Flexible bronchoscope was inserted and regular suctioning was done. At the completion of the procedure, no residual secretions or bloody material within the airway. The bronchoscope was removed. The patient was extubated. FINDINGS: 1.The airways appeared normal 2 Successful navigation, ultrasonographic identification, and biopsies of right upper lobe pulmonary nodule, apical 3.The the radial ultrasound view was (Concentric/Eccentric)}. 4 endobronchial ultrasound and transbronchial needle aspirate of right upper lobe/lower lobe mass RECOMMENDATIONS: Await pathology and cytology results The referring physician will be alerted to the results when available. The patient was advised to follow up with the referring physician with the biopsy results Patient will be called with results.
[2023-02-28] MEDS ORDERED: SODIUM CHLORIDE 0.9% 500 ML 500 ML IV ONE (09:26)
[2023-02-28 10:13] VITALS: PULSE 64
[2023-02-28 10:22] VITALS: BP 106/77
--- NOTE | 2023-02-28 13:11 | XR ---
EXAMINATION TYPE: XR chest 1V DATE OF EXAM: 02/28/2023 COMPARISON: 09/26/2013 HISTORY: 77-year-old male post biopsy exam TECHNIQUE: Single frontal view of the chest is obtained. FINDINGS: Heart limits of normal in size. Known right hilar mass seen on CT. ACDF hardware. No co nsolidation or pleural effusion. No pneumothorax. IMPRESSION: Known right hilar mass. No pneumothorax following the biopsy.
--- NOTE | 2023-02-28 13:15 | FL ---
Intraoperative/procedural fluoroscopic services were provided for bronchoscopy. Total fluoroscopy maricruz e is 56 seconds with a total of 4 submitted images to PACS. Total DAP 3.2301 Gycm2. Please see the o perative note for further details.
== END 2023-02-28 10:40 | disposition home or self-care (01) ==
LOC: ORWHC2ENDO 07:01
PROVIDERS: ATTEND Internal Medicine Critical Care Medicine
DX: C34.11 Malignant neoplasm of upper lobe, right bronchus or lung (principal); J44.9 Chronic obstructive pulmonary disease, unspecified; E78.5 Hyperlipidemia, unspecified; I10 Essential (primary) hypertension; Z79.899 Other long term (current) drug therapy; Z87.891 Personal history of nicotine dependence; Z88.6 Allergy status to analgesic agent; Z86.16 Personal history of COVID-19
CPT/HCPCS: 87798 ×3; 87496; 87498; 87529; 88305; 88173; 88342; 87502; 87634; 88341; 87070; 87205; 87116; 87102; 87206; 71045; 71250; 31628; 31633; 31623; 31624; 31652; J2250; J0330; J1100; J2710; J2405; J3010; J2704; J2001; J2371; S2900

== ENCOUNTER → 2023-03-12 | Outpatient (CLI) | payer MEDICARE ==
--- NOTE | 2023-03-12 11:23 | MR ---
EXAMINATION TYPE: MR brain wo/w con DATE OF EXAM: 03/12/2023 COMPARISON: None HISTORY: Malignant neoplasm right lung TECHNIQUE: Multiplanar, multisequence images of the brain and brainstem is performed without and with IV contras t, utilizing 10 mL intravenous Gadavist . FINDINGS: Diffusion weighted images demonstrate no evidence of a recent infarct or other diffusion ab normality There is abnormal signal throughout the gerald compatible with remote ischemia. Mild generalized degene rative change and confluent areas of abnormal signal scattered throughout the white matter bilaterall y most remote microvascular ischemia. There is changes of chronic sinusitis. Orbits are symmetric. Midline structures demonstrate normal morphology. Cerebellar tonsils are low-lying in position at the level of the foramen magnum.. Post contrast images demonstrate no abnormal enhancement. The dural v enous sinuses appear patent. IMPRESSION: 1. Degenerative and remote ischemic white matter change. No evidence of enhancing mass or mass effect . 2. Low-lying cerebellar tonsils.
== END | disposition home or self-care (01) ==
LOC: RADMRIMAIN 09:27
PROVIDERS: ATTEND Radiology Radiation Oncology
DX: C34.31 Malignant neoplasm of lower lobe, right bronchus or lung (principal); R90.82 White matter disease, unspecified; I67.82 Cerebral ischemia; Q04.8 Other specified congenital malformations of brain
CPT/HCPCS: 70553; A9585

== ENCOUNTER → 2023-03-29 | Outpatient (CLI) | payer MEDICARE ==
--- NOTE | 2023-04-03 12:53 | PE ---
EXAMINATION TYPE: PET CT fusion skull to thigh DATE OF EXAM: 03/29/2023 COMPARISON: CT chest 02/28/2023 Prior PET/CT: 08/31/2022 HISTORY: Lung cancer TECHNIQUE: Following the intravenous administration of 10.7 mCi of F-18 FDG, whole body images are p erformed from the skull base to the midthigh. Images are reviewed on the computer in the coronal, ax ial, and sagittal planes. Reconstructed rotating images are created on independent workstation and r eviewed on the computer. A localization and attenuation correction CT is performed in conjunction w ith the PET scan. DLP: 1013.05 mGycm SCAN: Subsequent Blood glucose: 105 mg/dL Average Mediastinum SUV: 2 Average Liver SUV: 2.63 FINDINGS: NECK: There is a focus radiotracer accumulation within the right tonsillar pillar. SUV 5.58, image 4 3. Contralateral tonsillar pillar on the left side image 41 has an SUV of 4.86. Direct visualization is recommended THORAX: There is increased uptake within a mass in the posterior left hilum. Image 107, SUV 9.59. Pre vious SUV 3.53 ABDOMEN: There is focal uptake within the liver lesion, image 152, SUV 10.35. The superior right lobe liver tiny nodule may be in the posterior lateral right upper lobe liver, image 140, SUV 5.03. There may be an additional inferior medial right lobe liver lesion. Image 171, SUV 6.25. PELVIS: No abnormal uptake OSSEOUS STRUCTURES: No abnormal uptake LOCALIZATION CT: Coronary artery calcifications noted. Couple calcified granuloma are also within the lung lafleur. COMPARISON: Uptake within the inferior medial right lobe liver may have been present previously. Collin tional foci within the liver are new. Posterior right hilar mass has increased in size and intensity over the interval. Tonsillar uptake may be diminished over the interval IMPRESSION: 1. New foci of uptake within the right lobe liver suspicious for metastatic disease. 2. Enlarging left hilar mass with increasing SUV.
== END | disposition home or self-care (01) ==
LOC: RADPETMAIN 13:56
PROVIDERS: ATTEND Radiology Radiation Oncology
DX: C34.31 Malignant neoplasm of lower lobe, right bronchus or lung (principal); R91.8 Other nonspecific abnormal finding of lung field
CPT/HCPCS: 78815; A9552

== ENCOUNTER → 2023-04-12 | Outpatient (CLI) | payer MEDICARE ==
--- NOTE | 2023-04-12 11:43 | US ---
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 FINDINGS: EXAM MEASUREMENTS: Liver Length: 17.0 cm Gallbladder Wall: 0.2 cm CBD: 0.5 cm Right Kidney: 11.1 x 4.9 x 4.3 cm Pancreas: Tail obscured by overlying bowel gas Liver: hypoechoic lesions visualized, largest = 4.5 x 3.4 x 4.0cm Gallbladder: no evidence of stones Evidence for sonographic Lincoln's sign: no CBD: appears wnl as visualized Right Kidney: no evidence of hydronephrosis Visualized portions of the pancreas unremarkable. The tail is obscured by overlying bowel gas. No cho lelithiasis, wall thickening or surrounding inflammatory changes. Negative sonographic Lincoln's sign. Common bile duct is within normal limits. No hydronephrosis, nephrolithiasis, or solid mass involvin g the right kidney. There are 2 adjacent hypoechoic lesions within the right hepatic lobe with larges t measuring 4.5 x 3.4 x 4.0 cm. No internal color flow identified. These demonstrate irregular margin s. IMPRESSION: There are 2 adjacent hypoechoic lesions within the right hepatic lobe corresponding to PET/CT which d emonstrated FDG avidity. These are highly concerning for metastasis.
== END | disposition home or self-care (01) ==
LOC: RADUSWWP 10:54
PROVIDERS: ATTEND Radiology Radiation Oncology
DX: C34.31 Malignant neoplasm of lower lobe, right bronchus or lung (principal); C34.11 Malignant neoplasm of upper lobe, right bronchus or lung; K76.89 Other specified diseases of liver
CPT/HCPCS: 76705

== ENCOUNTER 2023-04-16 08:53 | Day surgery (SDC) | payer MEDICARE ==
[2023-04-16] MEDS ORDERED: ALPRAZolam 0.25 MG TAB PO PRN (09:05)
[2023-04-16] MEDS ORDERED: HYDROmorphone 0.5 MG/0.5 ML SYRINGE IVP PRN (09:05)
[2023-04-16 09:35] LABS: Mean Platelet Volume 7.2; Platelet Count 271 k/uL (150-450)
[2023-04-16 09:44] VITALS: RESP 16; TEMP 97.7
[2023-04-16 09:58] LABS: INR 0.9 (<1.2); Prothrombin Time 10.4 sec (10.0-12.5)
[2023-04-16] MEDS ORDERED: MICROFIBRILLAR COLLAGEN HEMOST 0.5 GM PACK TOPICAL ONE (10:19)
--- NOTE | 2023-04-16 11:30 | US ---
EXAMINATION TYPE: US biopsy liver DATE OF EXAM: 04/16/2023 COMPARISON: NONE HISTORY: Abnormal PET scan with a right lobe liver lesion The procedure was explained to the patient. The risks, complications, benefits, and alternatives wer e discussed and any questions were answered. Informed consent was obtained. Patient was placed supi ne on the ultrasound table and prepped and draped in the usual sterile fashion. All elements of maximal barrier and sterile technique utilized. Utilizing ultrasound guidance, an 18 gauge core biopsy needle access into the right lobe of the live r was achieved and three 18 gauge core sample was obtained. The patient was stable throughout the pr ocedure and remained stable upon discharge. IMPRESSION: 1. Successful 18 gauge core biopsy of the liver.
[2023-04-16 14:30] VITALS: BP 104/56; PULSE 72
== END 2023-04-16 14:30 | disposition home or self-care (01) ==
LOC: RADPROMAIN 08:53
PROVIDERS: ATTEND Radiology Radiation Oncology
DX: C7A.1 Malignant poorly differentiated neuroendocrine tumors (principal)
CPT/HCPCS: 82947; 85049; 85610; 88342; 88307; 88341; 36415; 47000; 76942; J1170

== ENCOUNTER → 2023-07-18 | Outpatient (CLI) | payer MEDICARE ==
--- NOTE | 2023-07-21 14:02 | PE ---
EXAMINATION TYPE: PET CT fusion skull to thigh DATE OF EXAM: 07/18/2023 CLINICAL INDICATION:Male, 77 years old with history of C34.11 LUNG CANCER; TECHNIQUE: Following the intravenous administration of 11.08 mCi of F-18 FDG, whole body images are performed from the skull base to the midthigh. Images are reviewed on the computer in the coronal, axial, and sagittal planes. Reconstructed rotating images are created on independent workstation and reviewed on the computer. A non-contrast CT is performed in conjunction with the PET scan. Glucose level 175 mg/dL CT DLP: 1777 mGycm, Automated exposure control for dose reduction was used. COMPARISON: CT None, PET/CT 03/29/2023, FINDINGS: Mediastinal SUV mean is 1.2. Hepatic parenchyma SUV mean is 4.0. SKULL BASE AND NECK: No suspicious radiotracer activity. CHEST, MEDIASTINUM, AND HILAR REGION: * Decrease in right upper lung posterior hilar region mass now measuring 32 x 19 mm, previously 49 x 40 mm Max SUV in today's exam 3.8, previously 10.6. * Right apical scarring max SUV 2.5, previously 2.1. * ABDOMEN AND PELVIS: * Focal area of uptake within the liver is no longer definitively visualized the general area max SPARKS V 5.6. * No CT correlate definitively visualized on this noncontrast exam. MUSCULOSKELETAL STRUCTURES: Diffuse uptake throughout the skeletal structures likely physiologic to c olony stimulating factor medicine. OTHER CT: Atherosclerosis of the carotid bifurcations. There is coronary artery atherosclerosis. Bila teral gynecomastia changes. Scattered colonic diverticula. The appendix is normal. Fat-containing ing uinal hernias. Left renal cyst. Calcified granulomas within the coronary lobe of the liver and throug hout the spleen parenchyma. Postsurgical changes to the spine with hardware in place. IMPRESSION: 1. Positive response to therapy with decrease in right upper lung mass size and FDG activity. The he patic lesion is no longer visualized 2. Diffuse uptake throughout the skeletal structures likely physiologic to colony stimulating factor medicine.
== END | disposition home or self-care (01) ==
LOC: RADPETMAIN 08:06
PROVIDERS: ATTEND Internal Medicine
DX: C34.11 Malignant neoplasm of upper lobe, right bronchus or lung (principal); R91.8 Other nonspecific abnormal finding of lung field
CPT/HCPCS: 78815; A9552

== ENCOUNTER → 2023-07-22 | Outpatient (CLI) | payer MEDICARE ==
--- NOTE | 2023-07-22 11:46 | MR ---
EXAMINATION TYPE: MR brain wo/w con DATE OF EXAM: 07/22/2023 COMPARISON: 1023 HISTORY: Lung cancer, dizziness. TECHNIQUE: Multiplanar, multisequence images of the brain and brainstem is performed without and with IV contras t, utilizing 10 mL intravenous Gadavist . FINDINGS: Diffusion weighted images demonstrate no evidence of a recent infarct or other diffusion ab normality. Mild generalized degenerative change. There are scattered bilateral focal as well as confl uent areas of abnormal signal in the white matter which are nonspecific but most likely is white roc er ischemia. Faint signal also likely in the bases Midline structures demonstrate normal morphology. Cerebellar tonsils are low-lying in position without evidence of discrete Chiari malformation. Post contrast images demonstrate no abnormal enhancement. The dural venous sinuses appear patent. Changes of chronic sinusitis. Orbits are symmetric. Heterogeneous signal in clivus is stable and may represen t marrow redistribution. No soft tissue component or destructive changes there is a 3 mm area of redu aiyana enhancement of the pituitary gland and anterior and lateral to the right too small to characteriz e but most likely in the basis of a pituitary microadenoma. Not seen with certainty on prior exam. IMPRESSION: 1. No acute intracranial process. 2. Degenerative and nonspecific white matter findings most typical of remote microvascular ischemic w thais matter findings. 3. Stable low-lying cerebellar tonsils. 4. There is a 3 mm area of reduced signal involving the pituitary gland not seen on prior exam. This may represent a pituitary microadenoma. Correlate clinically.
== END | disposition home or self-care (01) ==
LOC: RADMRIMAIN 10:17
PROVIDERS: ATTEND Radiology Radiation Oncology
DX: G93.89 Other specified disorders of brain (principal); G31.9 Degenerative disease of nervous system, unspecified; E23.6 Other disorders of pituitary gland; C34.31 Malignant neoplasm of lower lobe, right bronchus or lung; C34.11 Malignant neoplasm of upper lobe, right bronchus or lung
CPT/HCPCS: 70553; A9585

== ENCOUNTER 2023-07-23 12:04 | Observation (INO) | payer MEDICARE ==
--- NOTE | 2023-07-23 12:28 | ED ---
General Adult HPI - General Chief complaint: Recheck/Abnormal Lab/Rx Stated complaint: Abn Labs, Low Hemo 6.1 Time Seen by Provider: 07/23/23 12:05 Source: patient, family Mode of arrival: wheelchair Limitations: no limitations - History of Present Illness Initial comments: Dictation was produced using [employer] dictation software. please excuse any grammatical, word or spelling errors. Chief Complaint: 77-year-old male presents with anemia History of Present Illness: Patient 77-year-old male he has low hemoglobin. Patient has blood work drawn today and was found to have a hemoglobin of 6. Patient completed chemotherapy for treatment of lung and liver cancer approximately 10 days ago. He apparently had some sort of IM injection to increase his blood count numbers. States that he was told it did not work. He was seen in the oncology office today with complaints of worsening generalized weakness and pallor. Patient denies any black or bloody stools. Patient does not take any anticoagulation medications. The ROS documented in this emergency department record has been reviewed and confirmed by me. Those systems with pertinent positive or negative responses have been documented in the HPI. All other systems are other negative and/or noncontributory. - Related Data Home Medications Medication Instructions Recorded Confirmed Metoprolol Succinate [Toprol XL] 50 mg PO DAILY 07/20/16 07/23/23 Sertraline [Zoloft] 50 mg PO DAILY 07/20/16 07/23/23 Olmesartan Medoxomil 40 mg PO DAILY 10/21/19 07/23/23 allopurinoL [Zyloprim] 300 mg PO BID 10/21/19 07/23/23 Edgerton-3 Fatty Acids [Edgerton-3] 2 cap PO BID 02/07/21 07/23/23 metFORMIN HCL 500 mg PO BID 02/07/21 07/23/23 Allergies Allergy/AdvReac Type Severity Reaction Status Date / Time hydrocodone [From Vicoprofen] Allergy "FELT Verified 07/23/23 14:05 FUNNY" LONG TIME AGO Review of Systems ROS Statement: Those systems with pertinent positive or pertinent negative responses have been documented in the HPI. ROS Other: All systems not noted in ROS Statement are negative. Past Medical History Past Medical History: Cancer, COPD, Diabetes Mellitus, Hyperlipidemia, Hypertension, Liver Disease, Skin Disorder Additional Past Medical History / Comment(s): SPOUSE STATES PATIENT HAD A COLLAPSE POST ROTATOR CUFF REPAIR ("GAVE EXTRA DOSE OF MEDICINE FOR SHOULDER PAIN" VIA CATHETHER OR BLOCK?). 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, prostatectomy, arthroscopy of right knee, bronch lung biopsy Past Anesthesia/Blood Transfusion Reactions: No Reported Reaction Additional Past Anesthesia/Blood Transfusion Reaction / Comment(s): no blood transfusion Past Psychological History: Anxiety, Depression Smoking Status: Former smoker Past Alcohol Use History: Occasional Past Drug Use History: Marijuana - Past Family History Mother Brother(s) Family Medical History: Cancer Additional Family Medical History / Comment(s): lung cancer General Exam - General Exam Comments Initial Comments: PHYSICAL EXAM: General Impression: Alert and oriented x3, not in acute distress HEENT: Normocephalic atraumatic, extra-ocular movements intact, pupils equal and reactive to light bilaterally, mucous membranes moist. Cardiovascular: Heart regular rate and rhythm Chest: Able to complete full sentences, no retractions, no tachypnea Abdomen: abdomen soft, non-tender, non-distended, no organomegaly Musculoskeletal: Pulses present and equal in all extremities, no peripheral edema Motor: no focal deficits noted Neurological: CN II-XII grossly intact, no focal motor or sensory deficits noted Skin: Intact with no visualized rashes Psych: Normal affect and mood Rectal exam: No gross blood Limitations: no limitations Course Vital Signs 07/23/23 07/23/23 07/23/23 12:05 13:05 14:17 Temperature 97.1 F L 98.4 F Pulse Rate 102 H 86 83 Respiratory 22 17 20 Rate Blood Pressure 105/46 107/52 105/58 O2 Sat by Pulse 96 98 99 Oximetry EKG Findings - EKG Comments: EKG Findings:: My EKG interpretation: Ventricular rate 90, sinus rhythm,. 176, QRS 93, QTc 382. No DE prolongation, no QTC prolongation, no ST or T-wave changes noted. Overall, this EKG is unremarkable Medical Decision Making - Medical Decision Making Was pt. sent in by a medical professional or institution ([facility] Joaquin, COBOL PROGRAMMER, urgent care, hospital, or longterm...) When possible be specific @ -No Did you speak to anyone other than the patient for history (EMS, parent, family, police, friend...)? What history was obtained from this source @ -No Did you review nursing and triage notes (agree or disagree)? Why? @ -I reviewed and agree with nursing and triage notes Were old charts reviewed (outside hosp., previous admission, EMS record, old EKG, old radiological studies, urgent care reports/EKG's, longterm records)? Report findings @ -No old charts were reviewed Differential Diagnosis (chest pain, altered mental status, abdominal pain women, abdominal pain men, vaginal bleeding, musculoskeletal, weakness, fever, dyspnea, syncope, headache, dizziness, GI bleed, back pain, seizure, CVA, palpatations, mental health)? @ -Differential Weakness: Hypoglycemia, shock, sepsis, hyponatremia, anemia, infection, NM, ETOH, adverse medicine reaction, overdose, stroke, this is not meant to be an all-inclusive list. EKG interpreted by me (3pts min.). @ -See above X-rays interpreted by me (1pt min.). @ -None done CT interpreted by me (1pt min.). @ -None done U/S interpreted by me (1pt. min.). @ -None done What testing was considered but not performed or refused? (CT, X-rays, U/S, labs)? Why? @ -None What meds were considered but not given or refused? Why? @ -None Did you discuss the management of the patient with other professionals (professionals i.e. [facility] Joaquin, COBOL PROGRAMMER, lab, RT, psych nurse, social service manager, shark biologist, teacher, operations officer afloat, case management assistant)? Give summary @ -Case discussed with hospitalist for admission Was smoking cessation discussed for >3mins.? @ -No Was critical care preformed (if so, how long)? @ -No Were there social determinants of health that impacted care today? How? (Homelessness, low income, unemployed, alcoholism, drug addiction, trans portation, low edu. Level, literacy, decrease access to med. care, custodial, rehab)? @ -No Was there de-escalation of care discussed even if they declined (Discuss DNR or withdrawal of care, Hospice)? DNR status @ -No What co-morbidities impacted this encounter? (DM, HTN, Smoking, COPD, CAD, Cancer, CVA, ARF, Chemo, Hep., AIDS, mental health diagnosis, sleep apnea, morbid obesity)? @ -None Was patient admitted / discharged? Hospital course, mention meds given and route, prescriptions, significant lab abnormalities, going to OR and other pertinent info. @ -77-year-old male presents to the ER for chemotherapy related anemia. Stool occult blood is negative. Patient vital signs are stable. Hemoglobin 6.2 patient has a lactic acidosis of 3.0 and magnesium 1.1. Patient having symptomatic anemia. Patient ordered for 2 units of transfusion. Patient be admitted to hospital for blood transfusion, IV magnesium and medical monitoring.. Undiagnosed new problem with uncertain prognosis? @ -No Drug Therapy requiring intensive monitoring for toxicity (Heparin, Nitro, Insulin, Cardizem)? @ -No Were any procedures done? @ -No Diagnosis/symptom? Acute, or Chronic, or Acute on Chronic? Uncomplicated (without systemic symptoms) or Complicated (systemic symptoms)? @ -Symptomatic anemia, hypomagnesemia Side effects of treatment? @ -No Exacerbation, Progression, or Severe Exacerbation? @ -No Poses a threat to life or bodily function? How? (Chest pain, USA, NM, pneumonia, PE, COPD, DKA, ARF, appy, cholecystitis, CVA, Diverticulitis, Homicidal, Suicidal, threat to staff... and all critical care pts) @ -yes - Lab Data Result diagrams: 07/23/23 12:48 07/23/23 12:48 Lab Results 07/23/23 07/23/23 07/23/23 Range/Units 12:48 12:48 12:48 WBC 2.8 L (3.8-10.6) k/uL RBC 2.01 L (4.30-5.90) m/uL Hgb 6.2 L* (13.0-17.5) gm/dL Hct 18.5 L* (39.0-53.0) % MCV 92.2 (80.0-100.0) fL MCH 31.1 (25.0-35.0) pg MCHC 33.7 (31.0-37.0) g/dL RDW 19.8 H (11.5-15.5) % Plt Count 128 L (150-450) k/uL MPV 8.6 Neutrophils % Not Reportable Neutrophils % (Manual) 45 % Band Neuts % (Manual) 1 % Lymphocytes % Not Reportable Lymphocytes % (Manual) 38 % Monocytes % Not Reportable Monocytes % (Manual) 8 % Eosinophils % Not Reportable Eosinophils % (Manual) 4 % Basophils % Not Reportable Metamyelocytes % 3 % Myelocytes % 3 % Neutrophils # Not Reportable Neutrophils # (Manual) 1.20 L (1.3-7.7) k/uL Lymphocytes # Not Reportable Lymphocytes # (Manual) 1.06 (1.0-4.8) k/uL Monocytes # Not Reportable Monocytes # (Manual) 0.22 (0-1.0) k/uL Eosinophils # Not Reportable Eosinophils # (Manual) 0.11 (0-0.7) k/uL Basophils # Not Reportable Metamyelocytes # (Man) 0.08 H (0) k/uL Myelocytes # (Manual) 0.08 H (0) k/uL Nucleated RBCs 3 H (0-0) /100 WBC Manual Slide Review Performed Polychromasia Present Hypochromasia Slight Poikilocytosis Slight Anisocytosis Slight PT 10.9 (10.0-12.5) sec INR 1.0 (<1.2) APTT 23.4 (22.0-30.0) sec Sodium (137-145) mmol/L Potassium (3.5-5.1) mmol/L Chloride (98-107) mmol/L Carbon Dioxide (22-30) mmol/L Anion Gap mmol/L BUN (9-20) mg/dL Creatinine (0.66-1.25) mg/dL Est GFR (CKD-EPI)AfAm (>60 ml/min/1.73 sqM) Est GFR (CKD-EPI)NonAf (>60 ml/min/1.73 sqM) Glucose (74-99) mg/dL Plasma Lactic Acid Ian (0.7-2.0) mmol/L Calcium (8.4-10.2) mg/dL Magnesium (1.6-2.3) mg/dL Total Bilirubin (0.2-1.3) mg/dL AST (17-59) U/L ALT (4-49) U/L Alkaline Phosphatase (38-126) U/L Total Protein (6.3-8.2) g/dL Albumin (3.5-5.0) g/dL Stool Occult Blood Negative (Negative) Blood Type Blood Type Recheck Bld Type Recheck Status Antibody Screen Crossmatch Spec Expiration Date 07/23/23 07/23/23 07/23/23 Range/Units 12:48 12:48 12:48 WBC (3.8-10.6) k/uL RBC (4.30-5.90) m/uL Hgb (13.0-17.5) gm/dL Hct (39.0-53.0) % MCV (80.0-100.0) fL MCH (25.0-35.0) pg MCHC (31.0-37.0) g/dL RDW (11.5-15.5) % Plt Count (150-450) k/uL MPV Neutrophils % Neutrophils % (Manual) % Band Neuts % (Manual) % Lymphocytes % Lymphocytes % (Manual) % Monocytes % Monocytes % (Manual) % Eosinophils % Eosinophils % (Manual) % Basophils % Metamyelocytes % % Myelocytes % % Neutrophils # Neutrophils # (Manual) (1.3-7.7) k/uL Lymphocytes # Lymphocytes # (Manual) (1.0-4.8) k/uL Monocytes # Monocytes # (Manual) (0-1.0) k/uL Eosinophils # Eosinophils # (Manual) (0-0.7) k/uL Basophils # Metamyelocytes # (Man) (0) k/uL Myelocytes # (Manual) (0) k/uL Nucleated RBCs (0-0) /100 WBC Manual Slide Review Polychromasia Hypochromasia Poikilocytosis Anisocytosis PT (10.0-12.5) sec INR (<1.2) APTT (22.0-30.0) sec Sodium 142 (137-145) mmol/L Potassium 5.2 H (3.5-5.1) mmol/L Chloride 111 H (98-107) mmol/L Carbon Dioxide 18 L (22-30) mmol/L Anion Gap 13 mmol/L BUN 30 H (9-20) mg/dL Creatinine 1.31 H (0.66-1.25) mg/dL Est GFR (CKD-EPI)AfAm 61 (>60 ml/min/1.73 sqM) Est GFR (CKD-EPI)NonAf 53 (>60 ml/min/1.73 sqM) Glucose 117 H (74-99) mg/dL Plasma Lactic Acid Ian 3.0 H* (0.7-2.0) mmol/L Calcium 9.4 (8.4-10.2) mg/dL Magnesium 1.1 L (1.6-2.3) mg/dL Total Bilirubin 0.8 (0.2-1.3) mg/dL AST 23 (17-59) U/L ALT 16 (4-49) U/L Alkaline Phosphatase 72 (38-126) U/L Total Protein 6.4 (6.3-8.2) g/dL Albumin 3.9 (3.5-5.0) g/dL Stool Occult Blood (Negative) Blood Type O Positive Blood Type Recheck O Pos Bld Type Recheck Status No Antibody Screen NEGATIVE Crossmatch See Detail Spec Expiration Date 07/26/20232347 Disposition Clinical Impression: Anemia, Hypomagnesemia Disposition: ADMITTED IP TO THIS [facility] Condition: Fair Referrals: Sancho Chan MD [Primary Care Provider] - 1-2 days Decision Time: 14:31
[2023-07-23 13:12] LABS: Anisocytosis Slight; Hypochromasia Slight; MCH 31.1 pg (25.0-35.0); MCHC 33.7 g/dL (31.0-37.0); MCV 92.2 fL (80.0-100.0); Mean Platelet Volume 8.6; Platelet Count 128 k/uL (150-450); Poikilocytosis Slight; RBC 2.01 m/uL (4.30-5.90); RDW 19.8 % (11.5-15.5)
[2023-07-23 13:14] LABS: HCT 18.5 % (39.0-53.0); HGB 6.2 gm/dL (13.0-17.5)
[2023-07-23 13:20] LABS: ALT 16 U/L (4-49); AST 23 U/L (17-59); African American GFR (CKD) 61 (>60 ml/min/1.73 sqM); Albumin 3.9 g/dL (3.5-5.0); Alkaline Phosphatase 72 U/L (38-126); Anion Gap 13 mmol/L; Blood Urea Nitrogen 30 mg/dL (9-20); Calcium 9.4 mg/dL (8.4-10.2); Carbon Dioxide 18 mmol/L (22-30); Chloride 111 mmol/L (98-107); Glucose 117 mg/dL (74-99); Magnesium 1.1 mg/dL (1.6-2.3); Non-African American GFR(CKD) 53 (>60 ml/min/1.73 sqM); Potassium 5.2 mmol/L (3.5-5.1); Sodium 142 mmol/L (137-145); Total Bilirubin 0.8 mg/dL (0.2-1.3); Total Protein 6.4 g/dL (6.3-8.2)
[2023-07-23 13:34] LABS: Partial Thromboplastin Time 23.4 sec (22.0-30.0); Prothrombin Time 10.9 sec (10.0-12.5)
[2023-07-23 14:24] LABS: Band Neutrophils % 1 %; Eosinophils # (M) 0.11 k/uL (0-0.7); Lymphocytes # (M) 1.06 k/uL (1.0-4.8); Metamyelocytes # (M) 0.08 k/uL (0); Metamyelocytes % 3 %; Monocytes # (M) 0.22 k/uL (0-1.0); Myelocytes # (M) 0.08 k/uL (0); Myelocytes % 3 %; Neutrophils % (M) 45 %; Nucleated Red Blood Cells 3 /100 WBC (0-0); Total Cells Counted 200; WBC 2.8 k/uL (3.8-10.6)
[2023-07-23 14:26] LABS: Polychromasia Present
[2023-07-23] MEDS ORDERED: NALOXONE 0.4 MG/ML 1 ML VIAL IV PRN (14:27)
[2023-07-23] MEDS: MAGNESIUM SULFATE-D5W PMX 1 GM in DEXTROSE/WATER 1 100ML.BAG IVPB SCH (14:33)
[2023-07-23] MEDS: SODIUM CHLORIDE 0.9% 500 ML 500 ML IV ONE (16:54)
[2023-07-23] MEDS: FUROSEMIDE 10 MG/ML 2 ML VIAL IV ONE (17:30)
[2023-07-24] MEDS: METOPROLOL SUCCINATE (ER) 50 MG TAB.ER.24H PO SCH (12:13)
[2023-07-24] MEDS: PANTOPRAZOLE 40 MG/10 ML VIAL IVP SCH (12:13)
[2023-07-24] MEDS: SERTRALINE 50 MG TAB PO SCH (12:13)
[2023-07-24 13:08] VITALS: BP 112/68; PULSE 93; RESP 16; TEMP 97.6
[2023-07-24 13:12] LABS: Anisocytosis Slight; Basophils % (A) 1 %; Eosinophils # (A) 0.1 k/uL (0-0.7); Eosinophils % (A) 4 %; Lymphocytes # (A) 0.7 k/uL (1.0-4.8); Lymphocytes % (A) 33 %; MCH 32.2 pg (25.0-35.0); MCHC 34.9 g/dL (31.0-37.0); MCV 92.4 fL (80.0-100.0); Monocytes # (A) 0.2 k/uL (0-1.0); Monocytes % (A) 9 %; Neutrophils # (A) 1.1 k/uL (1.3-7.7); Neutrophils % (A) 50 %; Platelet Count 116 k/uL (150-450); Poikilocytosis Slight; RBC 2.49 m/uL (4.30-5.90); WBC 2.2 k/uL (3.8-10.6)
[2023-07-24 13:29] LABS: African American GFR (CKD) 76 (>60 ml/min/1.73 sqM); Anion Gap 6 mmol/L; Blood Urea Nitrogen 29 mg/dL (9-20); Calcium 8.7 mg/dL (8.4-10.2); Carbon Dioxide 22 mmol/L (22-30); Chloride 111 mmol/L (98-107); Glucose 105 mg/dL (74-99); Magnesium 1.5 mg/dL (1.6-2.3); Non-African American GFR(CKD) 65 (>60 ml/min/1.73 sqM); Potassium 4.6 mmol/L (3.5-5.1); Sodium 139 mmol/L (137-145)
[2023-07-24] MEDS: MAGNESIUM SULFATE-D5W PMX 1 GM in DEXTROSE/WATER 1 100ML.BAG IVPB ONE (14:41)
--- NOTE | 2023-07-24 16:49 | P.CONS ---
History of Present Illness - Reason for Consult Consult date: 07/24/23 anemia, mixed histology lung ca Requesting physician: Mikayla Spencer - Chief Complaint weak, tired, low Hgb outpt - History of Present Illness Mr. Gross is a 77-year-old male pt of Dr. 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 Low-dose CT of the chest performed on 08/08/2022 noted increased size of nodule in the right lung apex to 1.6 cm in addition to a new 1.7 cm irregular density in the superior segment of the right lower lobe adjacent to the bronchus intermedius compared to prior imaging in 2019. Subsequent PET/CT on 08/31/2022 noted 1.7 cm right apex lesion without FDG avidity along with the new superior right lower lobe nodule measuring 2 cm with an SUV of 3.65. Follow-up CT of the chest on 02/15/2023 revealed increase in size of the right lower lobe lesion to 5.7 x 3.7 cm compared to 2 cm on PET/CT. Right apex lesion now measured 1.9 cm. 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 Brain MRI on 03/12/2023 was negative for intracranial metastasis. He had constitutional symptoms of unintentional wt loss, poor appetite (didn't think much of it as he had recently lost his ). He did smoke at least 1 pack of cigarettes daily for approximately 52 years, and occasionally smoked 2 packs/day at his peak. He last smoked cigarettes in 2016. His mother and brot her also developed lung cancer after cigarette smoking. Completed 4 cycles carbo/METAL GRADER/atezolizumab with short acting GCSF x 3 on 07/17. Seen yesterday in office. Reporting worsening generalized weakness, dizziness and shortness of breath over the last 1 week. Denies chest pain, cough, fever and chills. Denies blood in stool/melena. Pt afebrile, SPO2 98% on room air. Breathing was labored, pt was pale and weak. CBC showed WBC 3.25, ANC 930. Platelets 115,000, Hgb 6.3. Because of symptoms recommend he go to ER for further evaluation and blood transfusion. He is s/p 2 units of blood and re ports feeling much better, he has no c/o on a 10 point ROS, he wants to go home. Review of Systems 10 point ROS is neg Past Medical History Past Medical History: Cancer, COPD, Diabetes Mellitus, Hyperlipidemia, Hypertension, Liver Disease, Skin Disorder Additional Past Medical History / Comment(s): SPOUSE STATES PATIENT HAD A COLLAPSE POST ROTATOR CUFF REPAIR ("GAVE EXTRA DOSE OF MEDICINE FOR SHOULDER PAIN" VIA CATHETHER OR BLOCK?). skin cancer - head, Prostate cancer., Gout,thyroid nodule basil and squamous skin cancer, nodules histoplasmosis raising pigeons, lung mass was diagnosed with small cell. 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 - Past Family History Mother Brother(s) Family Medical History: Cancer Additional Family Medical History / Comment(s): lung cancer Medications and Allergies Home Medications Medication Instructions Recorded Confirmed Type Metoprolol Succinate [Toprol XL] 50 mg PO DAILY 07/20/16 07/23/23 History Sertraline [Zoloft] 50 mg PO DAILY 07/20/16 07/23/23 History Olmesartan Medoxomil 40 mg PO DAILY 10/21/19 07/23/23 History allopurinoL [Zyloprim] 300 mg PO BID 10/21/19 07/23/23 History [place]-3 Fatty Acids [[place]-3] 2 cap PO BID 02/07/21 07/23/23 History metFORMIN HCL 500 mg PO BID 02/07/21 07/23/23 History Allergies Allergy/AdvReac Type Severity Reaction Status Date / Time hydrocodone [From Vicoprofen] Allergy "FELT Verified 07/23/23 14:05 FUNNY" LONG TIME AGO Physical Exam Vitals: Vital Signs Temp Pulse Pulse Resp BP BP Pulse Ox 07/24/23 08:04 97.8 F 85 12 109/65 96 07/24/23 01:21 98.6 F 79 18 99/64 97 07/23/23 22:04 98.5 F 84 18 120/72 96 07/23/23 21:44 84 18 07/23/23 20:59 98.2 F 80 18 135/62 95 07/23/23 18:46 98.2 F 80 16 89/51 95 07/23/23 18:26 98.6 F 80 18 95/49 96 07/23/23 18:16 98.9 F 81 16 123/57 95 07/23/23 17:02 98.8 F 92 17 112/61 97 07/23/23 16:59 98.8 F 89 18 112/61 97 07/23/23 15:03 80 17 95/62 98 07/23/23 14:50 97.9 F 80 17 97/60 97 07/23/23 14:30 99.0 F 86 17 94/56 98 07/23/23 14:17 98.4 F 83 20 105/58 99 07/23/23 13:05 86 17 107/52 98 07/23/23 12:05 97.1 F L 102 H 22 105/46 96 Intake and Output 07/23/23 07/24/23 07/24/23 22:59 06:59 14:59 Intake Total 620 540 Balance 620 540 Intake: Oral 540 Blood Product 620 As-1 Unit 310 [id number] As-1 Unit 310 [id number] Other: Voiding Method Toilet Toilet # Voids 1 3 Weight 99.79 kg - Constitutional General appearance: average body habitus, cooperative, no acute distress - EENT Eyes: anicteric sclerae, EOMI ENT: hearing grossly normal, normal oropharynx - Respiratory Respiratory: bilateral: CTA - Cardiovascular Rhythm: regular Heart sounds: normal: S1, S2 Abnormal Heart Sounds: no systolic murmur, no diastolic murmur, no rub, no S3 Gallop, no S4 Gallop, no click, no other leg Peripheral Edema: bilateral: None - Gastrointestinal General gastrointestinal: normal bowel sounds, soft - Integumentary Integumentary: normal - Neurologic Neurologic: CNII-XII intact - Musculoskeletal Musculoskeletal: strength equal bilaterally - Psychiatric Psychiatric: A&O x's 3, appropriate affect, intact judgment & insight Results CBC & Chem 7: 07/24/23 12:47 07/24/23 12:47 Labs: Abnormal Lab Results - Last 24 Hours (Table) 07/23/23 07/23/23 07/23/23 Range/Units 12:48 12:48 12:48 WBC 2.8 L (3.8-10.6) k/uL RBC 2.01 L (4.30-5.90) m/uL Hgb 6.2 L* (13.0-17.5) gm/dL Hct 18.5 L* (39.0-53.0) % RDW 19.8 H (11.5-15.5) % Plt Count 128 L (150-450) k/uL Neutrophils # (Manual) 1.20 L (1.3-7.7) k/uL Metamyelocytes # (Man) 0.08 H (0) k/uL Myelocytes # (Manual) 0.08 H (0) k/uL Nucleated RBCs 3 H (0-0) /100 WBC Potassium 5.2 H (3.5-5.1) mmol/L Chloride 111 H (98-107) mmol/L Carbon Dioxide 18 L (22-30) mmol/L BUN 30 H (9-20) mg/dL Creatinine 1.31 H (0.66-1.25) mg/dL Glucose 117 H (74-99) mg/dL Plasma Lactic Acid Ian 3.0 H* (0.7-2.0) mmol/L Magnesium 1.1 L (1.6-2.3) mg/dL Crossmatch 07/23/23 07/23/23 Range/Units 12:48 16:14 WBC (3.8-10.6) k/uL RBC (4.30-5.90) m/uL Hgb (13.0-17.5) gm/dL Hct (39.0-53.0) % RDW (11.5-15.5) % Plt Count (150-450) k/uL Neutrophils # (Manual) (1.3-7.7) k/uL Metamyelocytes # (Man) (0) k/uL Myelocytes # (Manual) (0) k/uL Nucleated RBCs (0-0) /100 WBC Potassium (3.5-5.1) mmol/L Chloride (98-107) mmol/L Carbon Dioxide (22-30) mmol/L BUN (9-20) mg/dL Creatinine (0.66-1.25) mg/dL Glucose (74-99) mg/dL Plasma Lactic Acid Ian 2.6 H* (0.7-2.0) mmol/L Magnesium (1.6-2.3) mg/dL Crossmatch See Detail Assessment and Plan (1) Antineoplastic chemotherapy induced pancytopenia Status: Acute Priority: High Code(s): D61.810 - ANTINEOPLASTIC CHEMOTHERAPY INDUCED PANCYTOPENIA; T45.1X5A - ADVERSE EFFECT OF ANTINEOPLASTIC AND IMMUNOSUP DRUGS, INIT SNOMED Code(s): 545624244918160 (2) Non-small cell lung cancer (NSCLC) Status: Acute Priority: Medium Code(s): C34.90 - MALIGNANT NEOPLASM OF UNSP PART OF UNSP BRONCHUS OR LUNG SNOMED Code(s): 921064916 (3) Small cell lung cancer Status: Acute Priority: Medium Code(s): C34.90 - MALIGNANT NEOPLASM OF UNSP PART OF UNSP BRONCHUS OR LUNG SNOMED Code(s): 480945445 Plan: Chemo induced pancytopenia -Pt received GCSF, ANC adequate at 1100 -Mid thrombocytopenia -Symptomatic anemia, Hgb 6.2 on admit, Hgb 8 s/p 2 units PRBCs, symptoms resolved SCLC and NSCLC -PET/CT and MRI brain reviewed with patient. PET/CT revealed positive response to therapy with decrease in right upper lung mass size and FDG activity. Mass now measuring 32 x 19 mm, previously at 49 x 40 mm. SUV 3.8, previously 10.6. Hepatic lesion is no longer visualized. MRI brain showed no acute intracranial processes. -Due to see Rad Onc soon for definitive radiation Attests: I have seen and examined pt, performed H&P, developed impression and plan of care. Discussed with dictator. Agree with documentation, dictated as a scribe
--- NOTE | 2023-07-26 09:12 | P.HPIM ---
History of Present Illness H&P Date: 07/24/23 Chief Complaint: Abnormal labs, low hemoglobin History and physical and discharge summary This is a pleasant 77-year-old gentleman recently diagnosed with small cell and non-small cell carcinoma right lung in a patient with past medical history sig nificant for COPD, diabetes mellitus hypertension, hyperlipidemia, liver disease, prostate cancer/radical prostatectomy, anxiety, depression, marijuana use, prior nicotine dependence, family history of lung cancer and multiple other medical issues directed to the ER yesterday per oncology's office for low hemoglobin, 6.3. Patient reports he completed chemotherapy approximately 10 days ago, received Epogen for decreased energy and increased weakness with no improvement . Continued to have increased weakness. Denied hematemesis, hemoptysis or melena. On admission afebrile, WBC 2.8 ,hemoglobin 6.2, platelets 128. Received 2 units packed RBCs with significant clinical improvement. Received magnesium for magnesium 1.1 on admission. Repeat magnesium 1.5 and IV magnesium supplement ordered. Lactic acid 3-resolved currently 1.4, renal function improved, 1.1, at baseline, with IV fluid hydration. Blood sugars stable. maintaining O2 sats in the high 90s on room air. Ambulating, tolerating exertion well. Denies chest pain, palpitations or shortness of breath. Denies lightheadedness, dizziness or focal deficits. Patient is asking to be discharged. Review of Systems ROS Statement: Those systems with pertinent positive or pertinent negative responses have been documented in the HPI. ROS Other: All systems not noted in ROS Statement are negative. Past Medical History Past Medical History: Cancer, COPD, Diabetes Mellitus, Hyperlipidemia, Hypertension, Liver Disease, Skin Disorder Additional Past Medical History / Comment(s): SPOUSE STATES PATIENT HAD A COLLAPSE POST ROTATOR CUFF REPAIR ("GAVE EXTRA DOSE OF MEDICINE FOR SHOULDER PAIN" VIA CATHETHER OR BLOCK?). skin cancer - head, Prostate cancer., Gout,thyroid nodule basil and squamous skin cancer, nodules histoplasmosis raising pigeons, lung mass was diagnosed with small cell. 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 - Past Family History Mother Brother(s) Family Medical History: Cancer Additional Family Medical History / Comment(s): lung cancer Medications and Allergies Home Medications Medication Instructions Recorded Confirmed Type Metoprolol Succinate [Toprol XL] 50 mg PO DAILY 07/20/16 07/23/23 History Sertraline [Zoloft] 50 mg PO DAILY 07/20/16 07/23/23 History Olmesartan Medoxomil 40 mg PO DAILY 10/21/19 07/23/23 History allopurinoL [Zyloprim] 300 mg PO BID 10/21/19 07/23/23 History [place]-3 Fatty Acids [[place]-3] 2 cap PO BID 02/07/21 07/23/23 History metFORMIN HCL 500 mg PO BID 02/07/21 07/23/23 History Allergies Allergy/AdvReac Type Severity Reaction Status Date / Time hydrocodone [From Vicoprofen] Allergy "FELT Verified 07/23/23 14:05 FUNNY" LONG TIME AGO Physical Exam Vitals: Vital Signs Temp Pulse Pulse Resp BP BP Pulse Ox 07/24/23 12:11 97.6 F 93 16 112/68 98 07/24/23 08:04 97.8 F 85 12 109/65 96 07/24/23 01:21 98.6 F 79 18 99/64 97 07/23/23 22:04 98.5 F 84 18 120/72 96 07/23/23 21:44 84 18 07/23/23 20:59 98.2 F 80 18 135/62 95 07/23/23 18:46 98.2 F 80 16 89/51 95 07/23/23 18:26 98.6 F 80 18 95/49 96 07/23/23 18:16 98.9 F 81 16 123/57 95 07/23/23 17:02 98.8 F 92 17 112/61 97 07/23/23 16:59 98.8 F 89 18 112/61 97 07/23/23 15:03 80 17 95/62 98 02/20/24 14:50 97.9 F 80 17 97/60 97 07/23/23 14:30 99.0 F 86 17 94/56 98 07/23/23 14:17 98.4 F 83 20 105/58 99 07/23/23 13:05 86 17 107/52 98 Intake and Output 07/23/23 07/24/23 07/24/23 22:59 06:59 14:59 Intake Total 620 540 Balance 620 540 Intake: Oral 540 Blood Product 620 As-1 Unit 310 [id number] As-1 Unit 310 [id number] Other: Voiding Method Toilet Toilet # Voids 1 3 Weight 99.79 kg PHYSICAL EXAM: VITAL SIGNS: [As above] GENERAL: Alert and oriented x 3, standing up by bedside, no acute distress. No conversational dyspnea. HEENT: Normocephalic, conjunctivae pallor-minimal. eyes normal. NECK: Supple, no JVD. CARDIOVASCULAR: S1, S2 regular.. No murmur RESPIRATION: Unlabored, equal air entry, clear to auscultation . ABDOMEN: Soft, nondistended, nontender . No guarding. No rigidity, positive bowel sounds. LEGS: No edema. no swelling PSYCHIATRY: mood and affect normal. NERVOUS SYSTEM: Cranial N 2-12 grossly normal. No focal deficits. Strength and sensation grossly intact.. Skin: Warm and dry, no rash Results CBC & Chem 7: 07/24/23 12:47 07/24/23 12:47 Labs: Abnormal Lab Results - Last 24 Hours (Table) 07/23/23 07/23/23 07/23/23 Range/Units 12:48 12:48 12:48 WBC 2.8 L (3.8-10.6) k/uL RBC 2.01 L (4.30-5.90) m/uL Hgb 6.2 L* (13.0-17.5) gm/dL Hct 18.5 L* (39.0-53.0) % RDW 19.8 H (11.5-15.5) % Plt Count 128 L (150-450) k/uL Neutrophils # (Manual) 1.20 L (1.3-7.7) k/uL Metamyelocytes # (Man) 0.08 H (0) k/uL Myelocytes # (Manual) 0.08 H (0) k/uL Nucleated RBCs 3 H (0-0) /100 WBC Potassium 5.2 H (3.5-5.1) mmol/L Chloride 111 H (98-107) mmol/L Carbon Dioxide 18 L (22-30) mmol/L BUN 30 H (9-20) mg/dL Creatinine 1.31 H (0.66-1.25) mg/dL Glucose 117 H (74-99) mg/dL Plasma Lactic Acid Ian 3.0 H* (0.7-2.0) mmol/L Magnesium 1.1 L (1.6-2.3) mg/dL Crossmatch 07/23/23 07/23/23 Range/Units 12:48 16:14 WBC (3.8-10.6) k/uL RBC (4.30-5.90) m/uL Hgb (13.0-17.5) gm/dL Hct (39.0-53.0) % RDW (11.5-15.5) % Plt Count (150-450) k/uL Neutrophils # (Manual) (1.3-7.7) k/uL Metamyelocytes # (Man) (0) k/uL Myelocytes # (Manual) (0) k/uL Nucleated RBCs (0-0) /100 WBC Potassium (3.5-5.1) mmol/L Chloride (98-107) mmol/L Carbon Dioxide (22-30) mmol/L BUN (9-20) mg/dL Creatinine (0.66-1.25) mg/dL Glucose (74-99) mg/dL Plasma Lactic Acid Ian 2.6 H* (0.7-2.0) mmol/L Magnesium (1.6-2.3) mg/dL Crossmatch See Detail Assessment and Plan Assessment: Pancytopenia, chemotherapy-induced. Status post 2 unit packed RBCs Hypomagnesemia, supplemented Lactic acidosis, resolved with IV fluid hydration Dehydration, resolved Acute renal insufficiency secondary to the above, improved Small cell and non-small cell lung CA COPD, stable Diabetes mellitus Hypertension Hyperlipidemia Prior nicotine dependence Plan: Continue on current medication regimen ,monitoring and symptomatic treatme nt. Significant clinical improvement. Cleared by oncology for discharge. patient will be discharged home today in a stable condition with guarded prognosis, after completion of IV magnesium supplementation. Discharge Medication List Metoprolol Succinate [Toprol XL] 50 mg PO DAILY 07/20/16 [History] Sertraline [Zoloft] 50 mg PO DAILY 07/20/16 [History] Olmesartan Medoxomil 40 mg PO DAILY 10/21/19 [History] allopurinoL [Zyloprim] 300 mg PO BID 10/21/19 [History] [place]-3 Fatty Acids [[place]-3] 2 cap PO BID 02/07/21 [History] metFORMIN HCL 500 mg PO BID 02/07/21 [History] The impression and plan of care has been dictated as directed. : I performed a history and examination of this patient, discussed the same with the dictator. I agree with the dictator's note ,documented as a scribe. Any additional findings or plans will be noted.
== END 2023-07-24 16:02 | disposition home or self-care (01) ==
LOC: EC 12:04 → 5NMEDONC 14:28 → INTOOBSV 14:28 → 5NMEDONC 17:40 → UNDODISIN 07-24 16:02
PROVIDERS: ADMIT Family Medicine; ATTEND Family Medicine
PROC: 30233N1 Transfusion of Nonautologous Red Blood Cells into Peripheral Vein, Percutaneous Approach (ICD-10-PCS; principal; 2023-07-23)
DX: D61.810 Antineoplastic chemotherapy induced pancytopenia (principal); T45.1X5A Adverse effect of antineoplastic and immunosuppressive drugs, initial encounter; E83.42 Hypomagnesemia; C34.11 Malignant neoplasm of upper lobe, right bronchus or lung; C7A.1 Malignant poorly differentiated neuroendocrine tumors; C22.9 Malignant neoplasm of liver, not specified as primary or secondary; E87.20 Acidosis, unspecified; E86.0 Dehydration; J44.9 Chronic obstructive pulmonary disease, unspecified; E11.9 Type 2 diabetes mellitus without complications; I10 Essential (primary) hypertension; E78.5 Hyperlipidemia, unspecified; K76.9 Liver disease, unspecified; N28.9 Disorder of kidney and ureter, unspecified; F32.A Depression, unspecified; F41.9 Anxiety disorder, unspecified; Z79.84 Long term (current) use of oral hypoglycemic drugs; Z79.899 Other long term (current) drug therapy; Z88.5 Allergy status to narcotic agent; Z85.828 Personal history of other malignant neoplasm of skin; Z87.891 Personal history of nicotine dependence; Z85.46 Personal history of malignant neoplasm of prostate
CPT/HCPCS: 96366 ×2; 96375 ×2; 36430; 96361; 96365; 99285; 36415; 93005; 86900; 86901; 80053; 80048; 83605; 83735 ×2; 85025 ×2; 85610; 85730; 86850; 86920; 82272; G0378 ×2; P9016; J1940; J3475 ×2; C9113

== ENCOUNTER → 2023-09-20 | Outpatient (CLI) | payer MEDICARE ==
--- NOTE | 2023-09-20 18:44 | MR ---
EXAMINATION TYPE: MR cervical spine wo/w con DATE OF EXAM: 09/20/2023 3:21 PM CLINICAL INDICATION:Male, 77 years old with history of C34.90 MALIGNANT NEOPLASM OF UNSP PART OF UNSP BRO; PHH, Neck pain, headaches. Hx surgery, lung and liver cancer. COMPARISON: None. TECHNIQUE: Multi planar, multi sequence imaging was performed utilizing: T1-weighted, T2-weighted, an d turbo inversion recovery imaging of the cervical spine. IV Contrast: 9.5 cc Gadavist (none if empty) FINDINGS: Alignment: The cervical vertebral bodies have preserved heights. Alignment is within normal limits gi vic patient positioning. Bones: Osteophytes and disc space narrowing most pronounced at the C5-C7 vertebral levels. Fixation h ardware at C6-C7 anteriorly. Cord: The spinal cord is unremarkable with regards to their signal intensity and morphology. Discs: Intervertebral disc signal is maintained. C2-C3: No significant disc pathology. The spinal canal is patent. Bilateral facet and uncovertebral joint arthropathy are present with mild left neural foraminal stenosis. The right neural foramen is p atent. C3-C4: No significant disc pathology. The spinal canal is patent. Bilateral facet and uncovertebral joint arthropathy are present with mild bilateral neural foraminal stenosis. C4-C5: No significant disc pathology. The spinal canal is patent. Bilateral facet and uncovertebral joint arthropathy are present with mild right neural foraminal stenosis. The left neural foramen is p atent. C5-C6: A disc osteophyte complex is present which minimally narrows the ventral subarachnoid space. Bilateral facet and uncovertebral joint arthropathy are present with moderate bilateral neural clara inal stenosis. C6-C7: The disc is surgically absent. Bilateral facet and uncovertebral joint arthropathy are present with mild bilateral neural foraminal stenosis. C7-T1: No significant disc pathology. The spinal canal is patent. No neural foraminal stenosis. Other: None. IMPRESSION: 1. No evidence for disc herniation or significant spinal canal stenosis. 2. Mild disc degeneration with associated osteoarthritic changes with neural foraminal stenosis worse at C5-C6 bilaterally with moderate stenosis.
== END | disposition home or self-care (01) ==
LOC: RADMRIMAIN 14:24
PROVIDERS: ATTEND Internal Medicine
DX: M47.812 Spondylosis without myelopathy or radiculopathy, cervical region (principal); M50.322 Other cervical disc degeneration at C5-C6 level; M48.02 Spinal stenosis, cervical region; M99.71 Connective tissue and disc stenosis of intervertebral foramina of cervical region; C34.90 Malignant neoplasm of unspecified part of unspecified bronchus or lung; Z98.890 Other specified postprocedural states
CPT/HCPCS: 72156; A9585

== ENCOUNTER → 2023-10-09 | Outpatient (CLI) | payer MEDICARE ==
[2023-10-09 11:32] LABS: African American GFR (CKD) 90 (>60 ml/min/1.73 sqM); Blood Urea Nitrogen 16 mg/dL (9-20); Non-African American GFR(CKD) 78 (>60 ml/min/1.73 sqM)
--- NOTE | 2023-10-15 11:31 | CT ---
EXAMINATION TYPE: CT Chest Abd Pelvis w con CT DLP: 1514 mGycm, Automated exposure control for dose reduction was used. DATE OF EXAM: 10/09/2023 1:42 PM COMPARISON: None. CLINICAL INDICATION:Male, 77 years old with history of C34.31 MALIGNANT NEOPLASM OF LOWER LOBE, RIGHT BRO; PHH, h/o lung and colon CA, f/u Technique: CT Chest Abd Pelvis w con; Multiple axial images were obtained. Two-dimensional coronal an d sagittal reconstructions were obtained. Contrast used:100 mL of Isovue 300 with IV Contrast, Oral contrast used: with Oral Contrast Findings: CHEST: LUNGS/ PLEURA: Right upper lobe nodule is still identified. On the prior study on the PET scan from lesion measured 21 mm including tail attachment to the pleura in the lesion is unchanged siz e and appearance compared to prior study. AIRWAY: Patent and unremarkable. HEART: Size within normal limits. [id number] calcific coronary artery disease. MEDIASTINUM: No gross evidence of adenopathy. VASCULATURE: No aortic aneurysm. MUSCULOSKELETAL: No acute osseous abnormalities. SOFT TISSUES/LYMPH NODES: Unremarkable. LOWER NECK: No significant findings. ABDOMEN: ABDOMEN LIVER: Unremarkable. No liver lesion identified on today's exam. GALLBLADDER AND BILE DUCTS: Unremarkable. PANCREAS: Unremarkable. SPLEEN: Multiple calcified granuloma consistent with chronic, healed, granulomatous disease. ADRENAL GLANDS: Unremarkable. KIDNEYS AND URETERS: Benign-appearing subcentimeter cortical cysts. No evidence of hydronephrosis, s olid mass or renal calculus. The ureters are unremarkable. PELVIS BLADDER: Unremarkable REPRODUCTIVE: Unremarkable. ABDOMEN & PELVIS STOMACH AND BOWEL: Stomach and duodenum are unremarkable. Sigmoid colon diverticulosis without evid ence of diverticulitis. No evidence of bowel obstruction. PERITONEUM: No evidence of pneumoperitoneum or free fluid. VASCULATURE: No evidence of aortic aneurysm. MUSCULOSKELETAL: No acute osseous abnormalities LYMPH NODES: No gross evidence for lymphadenopathy. SOFT TISSUE/ABDOMINAL WALL: Unremarkable IMPRESSION: Right upper lobe nodule is reidentified and has unchanged size and appearance compared to CT images f rom previous PET/CT of 07/18/2023. No liver lesions are identified. No skeletal hypermetabolism. Coronary artery disease.
== END | disposition home or self-care (01) ==
LOC: RADCTMAIN 10:26
PROVIDERS: ATTEND Radiology Radiation Oncology
DX: I25.10 Atherosclerotic heart disease of native coronary artery without angina pectoris (principal); R91.1 Solitary pulmonary nodule; C78.7 Secondary malignant neoplasm of liver and intrahepatic bile duct; C34.31 Malignant neoplasm of lower lobe, right bronchus or lung; C34.11 Malignant neoplasm of upper lobe, right bronchus or lung; Z85.038 Personal history of other malignant neoplasm of large intestine
CPT/HCPCS: 82565; 84520; 71260; 74177; 36415; Q9967

== ENCOUNTER → 2023-12-25 | Outpatient (CLI) | payer MEDICARE, OTHER ==
--- NOTE | 2023-12-25 13:40 | MR ---
INDICATION: Patient age:Male; 78 years old; Reason for study: C34.11 LUNG CA C34.90 LUNG CA R11.0 NAUSEA; PHH. COMPARISON: MR brain 07/22/2023, 03/12/2023. TECHNIQUE: Multi planar, multi sequence imaging was performed through the brain. The patient was then given 8 cc of Gadavist intravenously and multi planar, T1 fat-saturation images were obtained. FINDINGS: The ho-white junctions, ventricular system, basal cisterns appear unremarkable. Diffusion-weighted imaging shows no evidence of restricted diffusion to suggest acute/subacute infarct. Intracranial art erial flow voids are maintained. Midline structures show no abnormality. New anterior right frontal l obe ovoid roughly enhancing 1.6 cm lesion in involving the cortex and white matter (series 704, image 36). Demonstrates restricted diffusion. There is some solid internal enhancing components. Surroundi ng vasogenic edema identified. Additional new ring-enhancing 7 mm ovoid right anterior parietal lobe lesion (series 704, image 39). No surrounding edema at this time. Additional new solidly enhancing 7 mm round lesion within the right cerebellum (series 704, image 16). No surrounding edema. Redemonstra tion of multiple similar periventricular and subcortical T2/FLAIR hyperintense foci. The susceptibili ty weighted images do not reveal any evidence for micro-hemorrhage. The bone marrow signal is within normal limits. The globes are unremarkable. Mild mucosal thickening of the ethmoid sinuses and right frontal sinus. IMPRESSION: 1. There are 3 new enhancing lesions within the right frontal and parietal lobes and right cerebellar hemisphere most consistent with metastasis. The dominant one is within the right frontal lobe measur ing up to 1.6 cm. 2. No evidence of acute/subacute infarct. 3. Nonspecific similar white matter changes likely related to small vessel ischemic disease versus de veloping metastasis. These do not enhance.
== END | disposition home or self-care (01) ==
LOC: RADMRIMAIN 07:12
PROVIDERS: ATTEND Internal Medicine
DX: C34.11 Malignant neoplasm of upper lobe, right bronchus or lung (principal); C34.90 Malignant neoplasm of unspecified part of unspecified bronchus or lung; R11.0 Nausea; G93.89 Other specified disorders of brain; Z71.3 Dietary counseling and surveillance
CPT/HCPCS: 70553; A9585

== ENCOUNTER → 2024-01-10 | Outpatient (CLI) | payer MEDICARE ==
--- NOTE | 2024-02-05 13:00 | PE ---
EXAMINATION TYPE: PET CT fusion skull to thigh DATE OF EXAM: 01/10/2024 CLINICAL INDICATION: Brain/lung cancer. TECHNIQUE: Following the intravenous administration of 9.46 mCi of F-18 FDG, whole body images are pe rformed from the skull base to the midthigh. Images are reviewed on the computer in the coronal, axia l, and sagittal planes. Reconstructed rotating images are created on independent workstation and revi ewed on the computer. A non-contrast CT is performed in conjunction with the PET scan. Glucose level 136 mg/dL CT DLP: 657 mGycm, Automated exposure control for dose reduction was used. COMPARISON: CT None, PET/CT 07/18/2023., MRI: None FINDINGS: Mediastinal SUV mean is 1.2. Hepatic parenchyma SUV mean is 4.0. SKULL BASE AND NECK: No suspicious radiotracer activity. CHEST, MEDIASTINUM, AND HILAR REGION: * Decrease in right upper lung posterior hilar region mass now measuring 32 x 19 mm, previously 49 x 40 mm Max SUV in today's exam 3.8, previously 10.6. * Right api subhash scarring max SUV 2.5, previously 2.1. * ABDOMEN AND PELVIS: Now heterogenous uptake throughout the liver with multiple focal liver lesions thought to be present. There are poorly visualized on noncontrast nonliver mass protocol CT. MUSCULOSKELETAL STRUCTURES: Diffuse uptake throughout the skeletal structures is no longer present. There are now some focal area s better appreciated with a background uptake resolved. Examples include: * Right sacrum max SUV 4.9, left sacrum max SUV 3.8 * Left iliac bone max is 3.1. * L2 vertebral body max SUV 4.4 * T11 vertebral body max SUV 6.9 * Manubrium max SUV 6.7. * T4 vertebral body max SUV 5.0. * Right transverse process of T1 max SUV 6.8. * Uptake within the posterior right arm max SUV 5.4. OTHER CT: Atherosclerosis of the carotid bifurcations. There is coronary artery atherosclerosis. Bila teral gynecomastia changes. Scattered colonic diverticula. The appendix is normal. Fat-containing ing uinal hernias. Left renal cyst. Calcified granulomas within the coronary lobe of the liver and throug hout the spleen parenchyma. Postsurgical changes to the spine with hardware in place. IMPRESSION: 1. Development of diffuse hepatic heterogenous FDG activity concerning for diffuse metastatic disease . MRI liver mass protocol if clinically for confirmation. 2. Diffuse uptake throughout the skeletal structures has resolved however there are more focal areas of uptake scattered throughout the osseous structures concerning for metastatic disease.
== END | disposition home or self-care (01) ==
LOC: RADPETMAIN 08:07
PROVIDERS: ATTEND Internal Medicine
DX: C34.90 Malignant neoplasm of unspecified part of unspecified bronchus or lung (principal); R93.7 Abnormal findings on diagnostic imaging of other parts of musculoskeletal system
CPT/HCPCS: 78815; A9552

== ENCOUNTER 2024-01-12 05:00 | Inpatient (IN) | payer MEDICARE ==
[2024-01-12] MEDS ORDERED: allopurinoL 300 MG TAB PO ONE (20:26)
[2024-01-12] MEDS ORDERED: SYMBICORT 80-4.5 MCG INHALER INHALATION ONE (23:59)
[2024-01-12] MEDS ORDERED: CLOTRIMAZOLE TROCHE 10 MG TROCHE ONE (23:59)
[2024-01-12] MEDS ORDERED: SODIUM CHLORIDE 0.9% 1,000 ML BAG ONE (23:59)
[2024-01-12] MEDS ORDERED: SODIUM CHLORIDE 0.9% 100 ML BAG IV ONE (23:59)
[2024-01-12] MEDS ORDERED: IPRATROPIUM-ALBUTEROL 3 ML NEB ONE (23:59)
[2024-01-13] MEDS ORDERED: PANTOPRAZOLE 40 MG TABLET PO ONE (10:40)
[2024-01-13] MEDS ORDERED: ASPIRIN 81 MG ONE (10:40)
[2024-01-13] MEDS ORDERED: DEXAMETHASONE SOD PHOSPHATE 4 MG/ML 1 ML VIAL ONE (10:40)
[2024-01-13] MEDS ORDERED: SERTRALINE 50 MG TAB ONE (10:41)
[2024-01-13] MEDS ORDERED: FLUCONAZOLE 100 MG TAB ONE (10:41)
[2024-01-13] MEDS ORDERED: allopurinoL 300 MG TAB PO ONE ×2 (10:41→19:30)
[2024-01-13] MEDS ORDERED: CHOLECALCIFEROL 125 MCG (5000 IU) TABLET ONE (10:41)
[2024-01-13] MEDS ORDERED: PIPERACILLIN-TAZOBACTAM 3.375 GM VIAL ONE ×2 (13:29→20:58)
[2024-01-13] MEDS ORDERED: IPRATROPIUM-ALBUTEROL 3 ML NEB ONE ×2 (20:28→23:59)
[2024-01-13] MEDS ORDERED: SYMBICORT 80-4.5 MCG INHALER INHALATION ONE (23:59)
[2024-01-13] MEDS ORDERED: SODIUM CHLORIDE 0.9% 100 ML BAG IV ONE (23:59)
[2024-01-13] MEDS ORDERED: SODIUM CHLORIDE 0.9% 1,000 ML BAG ONE (23:59)
[2024-01-13] MEDS ORDERED: CLOTRIMAZOLE TROCHE 10 MG TROCHE ONE (23:59)
[2024-01-13] MEDS ORDERED: INSULIN DETEMIR (LEVEMIR) 100 UNIT/ML SYR SQ ONE (23:59)
[2024-01-14] MEDS ORDERED: DEXAMETHASONE SOD PHOSPHATE 4 MG/ML 1 ML VIAL ONE (08:20)
[2024-01-14] MEDS ORDERED: SERTRALINE 50 MG TAB ONE (08:21)
[2024-01-14] MEDS ORDERED: ASPIRIN 81 MG ONE (08:21)
[2024-01-14] MEDS ORDERED: PANTOPRAZOLE 40 MG TABLET PO ONE (08:21)
[2024-01-14] MEDS ORDERED: allopurinoL 300 MG TAB PO ONE ×2 (08:21→20:18)
[2024-01-14] MEDS ORDERED: FLUCONAZOLE 100 MG TAB ONE (08:21)
[2024-01-14] MEDS ORDERED: PIPERACILLIN-TAZOBACTAM 3.375 GM VIAL ONE ×3 (08:34→23:20)
[2024-01-14] MEDS ORDERED: METOPROLOL TARTRATE 25 MG TAB ONE (17:48)
[2024-01-14] MEDS ORDERED: METOPROLOL SUCCINATE (ER) 25 MG TAB.ER.24H PO ONE (17:49)
[2024-01-14] MEDS ORDERED: SYMBICORT 80-4.5 MCG INHALER INHALATION ONE (23:59)
[2024-01-14] MEDS ORDERED: CLOTRIMAZOLE TROCHE 10 MG TROCHE ONE (23:59)
[2024-01-14] MEDS ORDERED: NYSTATIN 100,000 UNIT/ML SUSP 500,000 UNIT/5 ML CUP ONE (23:59)
[2024-01-14] MEDS ORDERED: SODIUM CHLORIDE 0.9% 100 ML BAG IV ONE (23:59)
[2024-01-14] MEDS ORDERED: IPRATROPIUM-ALBUTEROL 3 ML NEB ONE (23:59)
[2024-01-15] MEDS ORDERED: IPRATROPIUM-ALBUTEROL 3 ML NEB ONE (04:35)
[2024-01-15] MEDS ORDERED: INSULIN ASPART (NovoLOG) 100 UNIT/ML VIAL SQ ONE (06:54)
[2024-01-15] MEDS ORDERED: PIPERACILLIN-TAZOBACTAM 3.375 GM VIAL ONE ×3 (07:30→18:11)
[2024-01-15] MEDS ORDERED: METOPROLOL SUCCINATE (ER) 25 MG TAB.ER.24H PO ONE (08:20)
[2024-01-15] MEDS ORDERED: ASPIRIN 81 MG ONE (08:21)
[2024-01-15] MEDS ORDERED: SERTRALINE 50 MG TAB ONE (08:21)
[2024-01-15] MEDS ORDERED: PANTOPRAZOLE 40 MG TABLET PO ONE (08:21)
[2024-01-15] MEDS ORDERED: allopurinoL 300 MG TAB PO ONE ×2 (08:21→20:20)
[2024-01-15] MEDS ORDERED: DEXAMETHASONE SOD PHOSPHATE 4 MG/ML 1 ML VIAL ONE ×2 (15:33→20:20)
[2024-01-15] MEDS ORDERED: LIDOCAINE VISCOUS 2% 15 ML CUP ONE (23:59)
[2024-01-15] MEDS ORDERED: CLOTRIMAZOLE TROCHE 10 MG TROCHE ONE (23:59)
[2024-01-15] MEDS ORDERED: diphenhydrAMINE ELIXIR 25 MG/10 ML CUP ONE (23:59)
[2024-01-15] MEDS ORDERED: MAG HYDROX/AL HYDROX/SIMETH 30 ML CUP ONE (23:59)
[2024-01-15] MEDS ORDERED: FLUCONAZOLE IN NACL,ISO-OSM 100 MG/50 ML BAG IVPB ONE (23:59)
[2024-01-15] MEDS ORDERED: SODIUM CHLORIDE 0.9% 100 ML BAG IV ONE (23:59)
[2024-01-15] MEDS ORDERED: NYSTATIN 100,000 UNIT/ML SUSP 500,000 UNIT/5 ML CUP ONE ×2 (23:59)
[2024-01-15] MEDS ORDERED: INSULIN DETEMIR (LEVEMIR) 100 UNIT/ML SYR SQ ONE (23:59)
[2024-01-16] MEDS ORDERED: PIPERACILLIN-TAZOBACTAM 3.375 GM VIAL ONE ×5 (00:13→22:54)
[2024-01-16] MEDS ORDERED: IPRATROPIUM-ALBUTEROL 3 ML NEB ONE ×2 (04:41→23:59)
[2024-01-16] MEDS ORDERED: DEXAMETHASONE SOD PHOSPHATE 4 MG/ML 1 ML VIAL ONE ×3 (06:25→20:17)
[2024-01-16] MEDS ORDERED: PANTOPRAZOLE 40 MG TABLET PO ONE (10:21)
[2024-01-16] MEDS ORDERED: ASPIRIN 81 MG ONE (10:21)
[2024-01-16] MEDS ORDERED: allopurinoL 300 MG TAB PO ONE (10:22)
[2024-01-16] MEDS ORDERED: methylPREDNISolone SOD SUCCI 125 MG/2 ML VIAL ONE (10:22)
[2024-01-16] MEDS ORDERED: SERTRALINE 50 MG TAB ONE (10:22)
[2024-01-16] MEDS ORDERED: METOPROLOL SUCCINATE (ER) 25 MG TAB.ER.24H PO ONE (10:22)
[2024-01-16] MEDS ORDERED: PANTOPRAZOLE 40 MG/10 ML VIAL ONE (11:55)
[2024-01-16] MEDS ORDERED: NYSTATIN 100,000 UNIT/ML SUSP 500,000 UNIT/5 ML CUP ONE (23:59)
[2024-01-16] MEDS ORDERED: DEXTROSE 5% IN WATER 1,000 ML BAG ONE (23:59)
[2024-01-16] MEDS ORDERED: SODIUM CHLORIDE 0.9% 100 ML BAG IV ONE (23:59)
[2024-01-16] MEDS ORDERED: FLUCONAZOLE IN NACL,ISO-OSM 100 MG/50 ML BAG IVPB ONE (23:59)
[2024-01-16] MEDS ORDERED: SODIUM BICARB 8.4% 50 ML VIAL (1 MEQ/ML) ONE (23:59)
[2024-01-16] MEDS ORDERED: SYMBICORT 80-4.5 MCG INHALER INHALATION ONE (23:59)
[2024-01-16] MEDS ORDERED: INSULIN DETEMIR (LEVEMIR) 100 UNIT/ML SYR SQ ONE (23:59)
[2024-01-16] MEDS ORDERED: SODIUM CHLORIDE 0.9% 1,000 ML BAG ONE (23:59)
[2024-01-16] MEDS ORDERED: CLOTRIMAZOLE TROCHE 10 MG TROCHE ONE (23:59)
[2024-01-17] MEDS ORDERED: INSULIN ASPART (NovoLOG) 100 UNIT/ML VIAL SQ ONE ×2 (06:25→12:28)
[2024-01-17] MEDS ORDERED: PIPERACILLIN-TAZOBACTAM 3.375 GM VIAL ONE ×2 (06:26→12:39)
[2024-01-17] MEDS ORDERED: PANTOPRAZOLE 40 MG/10 ML VIAL ONE ×2 (07:33→07:42)
[2024-01-17] MEDS ORDERED: methylPREDNISolone SOD SUCCI 125 MG/2 ML VIAL ONE (07:33)
[2024-01-17] MEDS ORDERED: MORPHINE SULFATE 2 MG/ML SYRINGE ONE ×2 (15:50→21:35)
[2024-01-17] MEDS ORDERED: LORazepam 2 MG/ML INJ ONE ×2 (16:07→21:35)
[2024-01-17] MEDS ORDERED: SYMBICORT 80-4.5 MCG INHALER INHALATION ONE (23:59)
[2024-01-17] MEDS ORDERED: DEXTROSE 5% IN WATER 1,000 ML BAG ONE (23:59)
[2024-01-17] MEDS ORDERED: SODIUM CHLORIDE 0.9% 100 ML BAG IV ONE (23:59)
[2024-01-17] MEDS ORDERED: NYSTATIN 100,000 UNIT/ML SUSP 500,000 UNIT/5 ML CUP ONE (23:59)
[2024-01-17] MEDS ORDERED: SODIUM BICARB 8.4% 50 ML VIAL (1 MEQ/ML) ONE (23:59)
[2024-01-17] MEDS ORDERED: IPRATROPIUM-ALBUTEROL 3 ML NEB ONE (23:59)
--- NOTE | 2024-01-29 13:44 | FL ---
Exam Date: 01/29/2024 12:03 PM. Modified barium swallow for dysphagia. Consistencies administered: Various consistency of barium. Fluoro time: 1.4 minutes No images were sent to PACS. Please see speech pathology report. DAP: Not Reported mGym2 Gycm2 DOWN TIME EXAM. FOUND UNDER JEVON MANZANARES [id number] ALBERT FROM SPEECH ATTENDED. FL TIME 1.40 MINS PT WITH DYSPHAGIA.
--- NOTE | 2024-02-07 14:13 | CT ---
Site ID [facility] Patient Ricky Gross ID [id number] Order # Procedure CT ABD/PELVIS W/CONTRAST EXAMINATION TYPE: CT abdomen w con CT DLP: 1524 mGycm, Automated exposure control for dose reduction was used. DATE OF EXAM: 01/16/2024 1:31 PM COMPARISON: THIS EXAM WAS READ DURING PACS DOWNTIME, NO PRIORS AVAILABLE. CLINICAL INDICATION: DYSPHAGIA, CHOKING TECHNIQUE: Axial CT abdomen w con;Sagittal and coronal reformats were created on a separate workstat ion. Contrast used: 100 cc Isovue-300 Oral contrast used: (none if empty) FINDINGS: LOWER CHEST: Consolidation changes in the lung bases left greater than right. ABDOMEN LIVER: Diffuse hypoechoic attenuating lesions greater than 100 scattered throughout the liver. Is mil d coronary lobe hypertrophy. Nodular contour to liver. GALLBLADDER AND BILE DUCTS: Unremarkable. PANCREAS: Unremarkable. SPLEEN: Scattered calcified granulomas. ADRENAL GLANDS: Unremarkable. KIDNEYS AND URETERS: No evidence of hydronephrosis or renal calculus. The ureters are unremarkable. PELVIS BLADDER: Nondistended with Farrell catheter in place. REPRODUCTIVE: Unremarkable. ABDOMEN & PELVIS STOMACH AND BOWEL: No evidence of bowel obstruction. PERITONEUM/RETROPERITONEUM: No evidence of pneumoperitoneum. Trace free fluid in the pelvis. VASCULATURE: No evidence of aortic aneurysm. MUSCULOSKELETAL: No acute osseous abnormalities LYMPH NODES: No gross evidence for lymphadenopathy. SOFT TISSUE/ABDOMINAL WALL: Unremarkable IMPRESSION: 1. No evidence of bowel obstruction or acute abdominal process. 2. Diffuse abnormal appearance of the liver with multiple hypoattenuating lesions scattered througho ut. No priors are available for comparison, consider MRI liver mass protocol. Given some caudate lobe hypertrophy and nodular contour to liver findings could represent cirrhotic changes. 3. Bibasilar airspace consolidation correlate for aspiration. 4. Colonic diverticulosis. 5. Farrell catheter in appropriate position. 6. Trace free fluid throughout the abdomen.
--- NOTE | 2024-02-19 07:20 | XR ---
Ricky Gross ID [id number] Order # EXAMINATION TYPE: XR chest 1V DATE OF EXAM: 01/13/2024 11:56 AM CLINICAL INDICATION: Resp failure COMPARISON: None THIS EXAM WAS READ DURING PACS DOWNTIME, NO PRIORS AVAILABLE. TECHNIQUE: XR chest 1V Frontal view of the chest. FINDINGS: Lungs/Pleura: There is no evidence of pleural effusion, focal consolidation, or pneumothorax. Pulmonary vascularity: Unremarkable. Heart/mediastinum: Cardiomediastinal silhouette is unremarkable. Musculoskeletal: No acute osseous pathology. There is fixation hardware in the lower cervical spine. Other findings: None IMPRESSION: Airspace opacities project over the heart and right heart border correlate for pneumonia
--- NOTE | 2024-02-19 18:02 | CT ---
EXAM: CT Head Without Intravenous Contrast CLINICAL HISTORY: Poor historianASLO TECHNIQUE: Axial computed tomography images of the head/brain without intravenous contrast. CTDI is 49.1 mGy and DLP is 1168.4 mGy-cm. This CT exam was performed using one or more of the following dose reduction techniques: automated exposure control, adjustment of the mA and/or kV according to patient size, and/or use of iterative reconstruction technique. COMPARISON: No relevant prior studies available. FINDINGS: No acute intracranial hemorrhage. No midline shift or mass effect. The territorial ho-white matter differentiation is maintained throughout. Age-related cerebral volume loss. Periventricular and subcortical white matter hypoattenuation, consistent with chronic microangiopathy. The visualized orbits appear grossly unremarkable. The calvarium is intact. The visualized paranasal sinuses and mastoid air cells are grossly clear. IMPRESSION: No acute intracranial hemorrhage, midline shift, or mass effect. Radiologist: Rik Singh MD Electronically Signed: 01/12/24 02:26 Study ready at 01:34 and initial results transmitted at 02:26 Results also transmitted to Film Room, Film Room @ [phone] (Fax [phone]
--- NOTE | 2024-02-24 14:18 | CDI ---
Documentation Clarification Form Date: 02/24/2024 02:15:15 PM From: Fabi Bartlett RN, CCDS Phone: [phone] Admit Date: 01/12/2024 05:00:00 AM Patient Name: Ricky Gross Visit Number: [id number] Discharge Date: 01/18/2024 12:15:00 AM ATTENTION: The Clinical Documentation Specialists (CDI) and [facility] Coding Staff appreciate your assistance in clarifying documentation. Please respond to the clarification below the line at the bottom and electronically sign. The CDI & [facility] Coding staff will review the response and follow-up if needed. Please note: Queries are made part of the Legal Health Record. If you have any questions, please contact the author of this message via ITS. Doctor Fredi Corey Your patient had icteric sclera and jaundiced skin. Based on this information and the findings below, is there an additional diagnosis that is clinically appropriate for this patient? 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 Admitted with aspiration pneumonia, acute hypoxic respiratory failure and acute renal failure. Clinical Indicators: 01/15 IM: Difficult to arouse earlier. A&Ox2. +sclera icteric, +jaundice skin." 01/15 PT: "Patient showing increased lethargy." 01/15 Pulmonary: "Increased LFT's. Severe acidosis secondary to liver mets." 01/15 Oncology: "PET scan image was able to be obtained and unfortunately significant disease progression in the liver was noted." 01/15 Heme/Onc: "Lethargic, jaundice, weakness, breathing labored." 01/16 IM: "+jaundice, +sclera icteric, hepatic metabolic encephalopathy 2/2 to progressive liver disease. LFT's elevated secondary to the above." 01/10-01/16 Labs: AST [id number], ALT 715, T. bili 12.5, ALP 274, lactate 4.2 01/15 CT abdomen: diffuse hypoechoic attenuating lesions greater than 100 scattered throughout the liver. Given some caudate lobe hypertrophy and nodular contour to liver findings could represent cirrhotic changes. Treatment: Supportive care, IV Zosyn, IV steroids, nebulizers, IV Bicarb drip, possible hospice care. Is there an additional diagnosis that is clinically appropriate for this patient? [ ] Acute hepatic failure [ x ] Acute on chronic hepatic failure [ ] No additional diagnosis/Not clinically significant [ ] Unable to determine [ ] Other, please specify MTDD
--- NOTE | 2024-02-26 18:25 | XR ---
EXAMINATION TYPE: XR chest 1V portable DATE OF EXAM: 02/26/2024 COMPARISON: 01/13/2024 INDICATION: Respiratory distress TECHNIQUE: Single frontal view of the chest is obtained. FINDINGS: The heart size is normal. The pulmonary vasculature is normal. Some mild right perihilar infiltrate may be present. Lungs otherwise appear clear. IMPRESSION: 1. Clinical correlation recommended for atelectasis right infrahilar region. [facility], , 02/26/2024 6:22 PM
--- NOTE | 2024-02-27 14:40 | PN ---
PROGRESS NOTE DATE OF SERVICE: 01/14/2024 LOCATION: 382. REASON FOR FOLLOWUP: 1. Pneumonia. 2. Oral thrush. INTERVAL HISTORY: The patient is afebrile. The patient is breathing comfortably on nasal cannula oxygen. He is more awake and alert and looks better per the family at the bedside. The patient denies having any chest pain. He did have a cough, but not bringing up any sputum. Also complaining of oral thrush. Has been tolerating his diet. No choking on the food has been reported. PHYSICAL EXAMINATION: VITAL SIGNS: Blood pressure is 109/69, pulse is 113, temperature of 99. He is 93% on 4 L nasal cannula. GENERAL DESCRIPTION: This is an elderly male, lying in bed, in no distress. HEENT: Extensive thrush. LUNGS: Unlabored breathing. Coarse breath sounds bilaterally. No wheeze. HEART: S1, S2. Regular rate and rhythm. ABDOMEN: Soft, no tenderness. LABORATORY DATA: Cultures currently pending. DIAGNOSTIC IMPRESSION AND PLAN: 1. The patient admitted to the hospital with weakness, found unresponsive, concerned for pneumonia, possible Gram-negative/aspiration, covered with Zosyn. Try to obtain a sputum. To narrow down antibiotics. 2. The patient has some oral thrush. Continue Diflucan. We will add nystatin swish and swallow. Family at the bedside. Questions were answered. MMODL / IJN: [id number] /
--- NOTE | 2024-02-28 09:00 | PN ---
PROGRESS NOTE LOCATION: 382. REASON FOR FOLLOWUP: Oral thrush and possible aspiration/gram-negative pneumonia. INTERVAL HISTORY: The patient is afebrile. The patient is currently lethargic and unable to provide any history. He is breathing comfortably on nasal cannula oxygen. No vomiting, diarrhea, or any other changes have been reported by the family at the bedside. PHYSICAL EXAMINATION: VITAL SIGNS: Blood pressure 110/64, pulse of 116, temperature 98.4 with 99% on nasal cannula oxygen. GENERAL DESCRIPTION: This is an elderly male lying in bed, in no distress. RESPIRATORY SYSTEM: Unlabored breathing, decreased intensity of breath sounds. No wheeze. HEART: S1, S2. Regular rate and rhythm. ABDOMEN: Soft, no tenderness. EXTREMITIES: Normal feet. LABS: Cultures currently pending. DIAGNOSTIC IMPRESSION AND PLAN: The patient is admitted to the hospital with: 1. Episode of unresponsive and weakness in this patient who did have a component of pneumonia, question of gram-negative/aspiration. The patient is broadly covered with Zosyn, to continue. 2. Oral thrush. To continue with Diflucan. Not able to do the Nystatin swish and swallow. Prognosis remains to be guarded. Hospice may be a better option. Family at the bedside. Questions were answered. MMODL / IJN: [id number] /
--- NOTE | 2024-02-28 09:00 | PN ---
PROGRESS NOTE LOCATION: 382. REASON FOR FOLLOWUP: 1. Possible aspiration/Gram-negative pneumonia. 2. Oral thrush. INTERVAL HISTORY: The patient is afebrile. The patient is still having shortness of breath. Denies any chest pain. Did have a cough, not bringing up any sputum. No vomiting or diarrhea has been reported. Apparently, he did fail his swallow test. PHYSICAL EXAMINATION: VITAL SIGNS: Blood pressure 111/70, pulse 102, temperature of 97.4. He is 94% on 4 L. GENERAL DESCRIPTION: This is an elderly male, lying in bed, in no distress. RESPIRATORY SYSTEM: Unlabored breathing. Coarse breath sounds bilaterally. No wheeze. HEART: S1, S2. Regular rate and rhythm. ABDOMEN: Soft, no tenderness. EXTREMITIES: No edema in the feet. DIAGNOSTIC IMPRESSION AND PLAN: 1. The patient admitted to the hospital with weakness, unresponsiveness, has been diagnosed with pneumonia question of aspiration/gram-negative, covered with Zosyn. Try to obtain a sputum. 2. Extensive oral thrush. To continue with Diflucan, nystatin swish and swallow if he can tolerate it. MMODL / IJN: [id number] /
--- NOTE | 2024-02-28 09:00 | PN ---
PROGRESS NOTE LOCATION: 322. REASON FOR FOLLOW-UP: 1. Possible Gram-negative/aspiration pneumonia. 2. Oral thrush. INTERVAL HISTORY: Patient is afebrile. The patient is breathing comfortably, currently on nasal cannula oxygen. The patient remains to be lethargic and less responsive as reported by the family at the bedside. No vomiting, diarrhea and no changes reported. PHYSICAL EXAMINATION: VITAL SIGNS: Blood pressure is 81/50 with a pulse of , temperature 98, O2 sat 94% on 4 L nasal cannula. GENERAL DESCRIPTION: Elderly male lying in bed, in no distress. RESPIRATORY SYSTEM: Unlabored breathing. ABDOMEN: Soft. EXTREMITIES: No . DIAGNOSTIC IMPRESSION AND PLAN: 1. Admitted the patient to hospital with weakness, level of unresponsiveness with concern for pneumonia possible aspiration/gram-negative for the patient covered with Zosyn. 2. Patient with oral thrush, on Diflucan. 3. Family's concern of possible hospice, which may be appropriate in that case, antibiotic can be safely discontinued. MMODL / IJN: [id number] /
== END 2024-01-18 00:15 | disposition expired | DRG 177 ==
LOC: 3SCARD 05:00
PROVIDERS: ADMIT Family Medicine; ATTEND Family Medicine
DX: J69.0 Pneumonitis due to inhalation of food and vomit (principal); G92.8 Other toxic encephalopathy; J96.01 Acute respiratory failure with hypoxia; K72.00 Acute and subacute hepatic failure without coma; C78.7 Secondary malignant neoplasm of liver and intrahepatic bile duct; C79.31 Secondary malignant neoplasm of brain; C34.12 Malignant neoplasm of upper lobe, left bronchus or lung; E87.20 Acidosis, unspecified; B37.0 Candidal stomatitis; N17.9 Acute kidney failure, unspecified; Z51.5 Encounter for palliative care; Z66 Do not resuscitate; R13.10 Dysphagia, unspecified; I10 Essential (primary) hypertension; E11.9 Type 2 diabetes mellitus without complications; E87.5 Hyperkalemia; Z79.4 Long term (current) use of insulin; K72.10 Chronic hepatic failure without coma; L89.156 Pressure-induced deep tissue damage of sacral region; Z85.46 Personal history of malignant neoplasm of prostate; Z79.51 Long term (current) use of inhaled steroids; Z79.82 Long term (current) use of aspirin; Z79.899 Other long term (current) drug therapy
CPT/HCPCS: 70450; 71045; 74177; 74230; 94640; 94760; 99285